=== PATIENT | male | born 1970 | race Caucasian/White ===

== ENCOUNTER 2016-12-11 15:07 | Observation (INO) | payer BC, OTHER ==
[~2016-12-11] VITALS: Ht 180.3 cm; Wt 145.0 kg
[~2016-12-11 15:07] MED LIST: ASPI81TA28 PO; ATOR-26 PO; CLOP1TAB15 PO; DPKSR/500 PO; EZET10TA63 PO; LISI-729 PO; METO25TA3 PO; NTRGSL/4 UT; TRAZ50TA35 PO
[2016-12-11] MEDS: NITROGLYCERIN 0.4 MG SL PER TAB CHARGE ONE (15:40)
[2016-12-11] MEDS: NITROGLYCERIN 0.4 MG SL PER TAB CHARGE SL STA (15:41)
[2016-12-11] MEDS: ASPIRIN 324 MG CHEW PO STA ×2 (15:48→16:04)
[2016-12-11 15:49] LABS: MEAN CELL VOLUME 90.5 fL (80-100); MEAN CORPUSCULAR HEMOGLOBIN 31.9 pg (25-34); MEAN CORPUSCULAR HGB CONC 35.2 g/dl (32-36); MEAN PLATELET VOLUME 10.7 fL (7.4-10.4); PLATELET COUNT 232 K/uL (130-400); RED BLOOD COUNT 4.86 M/uL (4.7-6.1)
[2016-12-11 16:06] LABS: BLOOD UREA NITROGEN 14 mg/dl (7-18); BUN/CREATININE RATIO 15.3 (10-20); CALCIUM 8.5 mg/dl (8.5-10.1); CARBON DIOXIDE 24 mmol/L (21-32); CHLORIDE 106 mmol/L (98-107); GLUCOSE 84 mg/dl (70-99); POTASSIUM 3.9 mmol/L (3.5-5.1); SODIUM 142 mmol/L (136-145)
--- NOTE | 2016-12-11 16:06 | DIAGNOSTIC IMAGING REPORT ---
CHEST 2 VIEWS ROUTINE CLINICAL HISTORY: Chest pain radiating to the back COMPARISON STUDY: 02/27/2015 FINDINGS: The cardiac and mediastinal contours are normal. There is no evidence of focal pulmonary consolidation. There is no evidence of failure. No pleural effusions are visualized.[ IMPRESSION: No active disease in the chest. Electronically signed by: Steven Griffin M.D. 12/11/2016 4:04 PM Dictated Date/Time: 12/11/2016 4:03 PM
[2016-12-11 16:11] LABS: CKMB/CK RATIO 1.1 (0-3.0)
[2016-12-11] MEDS ORDERED: NITROGLYCERIN 0.4 MG SL PER TAB CHARGE SL STA (16:55)
--- NOTE | 2016-12-11 16:55 | EMERGENCY ROOM VISIT NOTE ---
History First contact with patient: 15:11 Chief Complaint: CHEST PAIN Stated Complaint: CHEST PAINS, SHOULDER AND ARMS AND NECK PAIN Nursing Triage Summary: Patient states has been having chest pain for 3-4 days. Radiates to neck and right shoulder. Patient as taken nitro at home with intermittent relief. Patient states pain is currently 3/10, not radiating anywhere. Hx of bipolar disorder and NSTEMI. History of Present Illness The patient is a 46 year old male who presents to the Emergency Room with complaints of chest pain for 3 days. Patient has a history of DC with stenting to the left circumflex artery in 2011. EF on record is 55%. Patient notes chest pain came on suddenly 3 days ago. It is a pressure pain, 4/ 10 usually, has been as high as 7/10. He has not been active or ambulating much so cannot determine if it is worsened with exertion. He did try taking 1 SL nitro tab 1 day ago and did get pain relief for about an hour. He notes that the pain began radiating to his shoulders back and neck, which concerned him given that these features were similar to those he had with his DC in 2012. He denies any SOB, orthopnea, PND. He has palpitations often but attributes them to his background of anxiety. He does have baseline coughing but this is attributed to smoking and has been unchanged in many years. He has not had fevers, chills or nightsweats. He has no abdominal or genitourinary symptoms. Of note, he admits that he does not always take his medications as directed. He notes that twice monthly, he will go 3-4 days without taking his medications because it is hard to remember to take them. He notes discontinuing his Metoprolol because it made him feel sick. Review of Systems A 10 point review of systems was negative unless stated above. 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) Current/Historical Medications Scheduled Aspirin (Aspirin Ec), 81 MG PO DAILY Atorvastatin (Lipitor), 80 MG PO DAILY Clopidogrel (Plavix), 75 MG PO DAILY Divalproex Sodium (Depakote Etended-Release), 500 MG PO DAILY Ezetimibe (Zetia), 10 MG PO DAILY Scheduled PRN Nitroglycerin (Nitrostat), 0.4 MG UT UD PRN for Chest Pain Trazodone Hcl (Trazodone), 50 MG PO HS PRN for Sleep Allergies Coded Allergies: No Known Allergies (Unverified , 01/08/11) Physical Exam Vital Signs Date Time Temp Pulse Resp B/P Pulse Ox O2 Delivery O2 Flow Rate FiO2 12/11/16 17:08 86 21 127/62 94 Room Air 12/11/16 15:50 79 12/11/16 15:30 94 Room Air 12/11/16 15:30 94 Room Air 12/11/16 15:13 36.3 72 18 143/92 94 Room Air Pain Rating (0-10): 4 Physical Exam Constitutional: Vital signs as above were reviewed. Eyes: Pupils equal, round, and reactive to light. Extraocular muscles are intact. No proptosis. No photophobia. ENT: Mucous membranes are moist. Oropharynx is clear. No sinus tenderness. TMs are clear bilaterally. Cardiovascular: Heart with a regular rate and rhythm. Pulses are palpable and symmetric in all 4 extremities. No pedal edema appreciated. Respiratory: Lungs clear to auscultation bilaterally. No wheezes, rales, or rhonchi appreciated. No accessory muscle use. No retractions. No increased work of breathing. GI: Abdomen soft, nontender, nondistended. Normal active bowel sounds. No abdominal hernias appreciated. No rebound. No guarding. : No CVA tenderness appreciated. Musculoskeletal: No midline cervical or vertebral tenderness. No gross deformities. No bony tenderness. No calf swelling or tenderness. Integumentary: Warm, dry, no rashes appreciated. Neurological: Patient awake, alert, and oriented x 3. Cranial nerves two through 12 grossly intact. Motor 5 out of 5 strength bilateral upper and lower extremities. Lymph: No cervical lymphadenopathy appreciated. Medical Decision & Procedures ER Provider Diagnostic Interpretation: CHEST 2 VIEWS ROUTINE CLINICAL HISTORY: Chest pain radiating to the back COMPARISON STUDY: 02/27/2015 FINDINGS: The cardiac and mediastinal contours are normal. There is no evidence of focal pulmonary consolidation. There is no evidence of failure. No pleural effusions are visualized.[ IMPRESSION: No active disease in the chest. Electronically signed by: Steven Griffin M.D. 12/11/2016 4:04 PM Dictated Date/Time: 12/11/2016 4:03 PM Laboratory Results 12/11/16 15:30 12/11/16 15:30 Test 12/11/16 15:30 12/11/16 15:42 Red Blood Count 4.86 M/uL (4.7-6.1) Mean Corpuscular Volume 90.5 fL (80-100) Mean Corpuscular Hemoglobin 31.9 pg (25-34) Mean Corpuscular Hemoglobin Concent 35.2 g/dl (32-36) RDW Standard Deviation 44.5 fL (36.4-46.3) RDW Coefficient of Variation 13.5 % (11.5-14.5) Mean Platelet Volume 10.7 fL (7.4-10.4) Anion Gap 12.0 mmol/L (3-11) Est Creatinine Clear Calc Drug Dose 151.6 ml/min Estimated GFR () 119.1 Estimated GFR (Non- 102.8 BUN/Creatinine Ratio 15.3 (10-20) Calcium Level 8.5 mg/dl (8.5-10.1) Total Creatine Kinase 54 U/L (39-308) Creatine Kinase MB 0.6 ng/ml (0.5-3.6) Creatine Kinase MB Ratio 1.1 (0-3.0) Troponin I < 0.015 ng/ml (0-0.045) Valproic Acid (Depakene) Level 6 mcg/ml (50-100) Bedside Troponin I 0.000 ng/ml (0-0.045) Medications Administered Medications (Trade) Dose Ordered Sig/Nancy Route Start Time Stop Time Status Last Admin Dose Admin Nitroglycerin (Nitrostat Tab) 0.8 mg STK-MED ONCE .ROUTE 12/11/16 15:40 12/11/16 15:42 DC 12/11/16 15:40 0.8 MG Aspirin (Aspirin Chew) 324 mg NOW STAT PO 12/11/16 15:48 12/11/16 15:49 DC 12/11/16 15:48 324 MG ECG Indication: chest pain Change: NSR with sinus arrhythmia No acute ST or T wave changes No ectopy or pauses ED Course 15:20 - Patient evaluated Orders: CBC, BMP, POC troponin, troponin, ck, ckmb, CXR 0.4 SL nitro 243 mg ASA (patient already got 81 at home) 15:40 - Discussed case with ED attending physician 16:20 - EKG reviewed; No acute changes CXR reviewed: no acute findings Labs reviewed: Cardiac enzymes WNL ; CBC and BMP grossly normal Additional Nitro 0.4 mg ordered Serum Depakote ordered 16:30 - Discussed findings with Dr. Gordon Patient to be admitted for unstable angina with ongoing chest pain; patient high risk due to previous history and medication non-compliance 16:40 - Discussed case with Dr. Moreno of [facility]; agreed to admit patient for further evaluation 16:55 - Patient ordered additional 0.4 mg SL nitroglycerine Medical Decision History was obtained, complete physical examination was performed and EMR reviewed. Patient presents with chest pain on a background of known coronary disease. Patient has 2/3 features of typical angina, categorizing symptoms as 'atypical angina'. Differential diagnosis for chest pain includes: ACS, stable angina, pneumothorax , PE, pneumonia, aortic dissection, costochondritis, GERD. EKG was reviewed with negative cardiac enzyme x 1. Patient is however a high risk for re-infarction given 1) documented coronary disease 2) questionable compliance on current medication regimen. Patient treated with ASA 324 and Nitro SL 0.4 mg x 2, which did provide relief for chest pain. CXR was also reviewed to rule out any acute pulmonary or aortic process. No focal tenderness on exam, ruling out costochondritis. Patient requires observation for cardiac monitoring and enzyme trending. Discussed need for admission with [facility] who agree to admit and evaluate patient. Patient was admitted to inpatient service in stable condition. Departure Information Dispostion Being Evaluated By Hospitalist Condition GOOD Referrals No Doctor, Assigned (PCP) Patient Instructions [facility]
[2016-12-11] MEDS ORDERED: ACETAMINOPHEN 325 MG TAB PO PRN (17:30)
[2016-12-11] MEDS ORDERED: ONDANSETRON INJ 2 MG/ML 2 ML VIAL IV PRN (17:30)
--- NOTE | 2016-12-11 18:05 | History and Physical ---
History & Physical Date & Time of Service: Dec 11, 2016 at 17:38 Chief Complaint: Chest Pains, Shoulder And Arms And Neck Pain Primary Care Physician: No Doctor, Assigned History of Present Illness Source: patient, family Patient is a 46 yr old male with PMH of CAD S/P stent, Morbid obesity, Tobacco use disorder, Bipolar disorder presents with chest pain since 3 days duration. Patient had stenting to the left circumflex artery in 2011 and last EF is 55%. He states chest pain is sudden in onset at rest, retrosternal, pressure like, 4- 7/10 intensity, radiates to shoulders, back and neck. Chest pain improved with SL Nitro at home also while in ED. States chest pain is worse with eating and better while lying. He is unsure if chest pain worsens with exertion. Reports associated dizziness yesterday. Reports he recently got an URI which resolved with any medications. Denies any history of SOB, orthopnea, PND, pedal edema, diaphoresis, fever, chills, change in bowel/bladder habits. States he discontinued metoprolol secondary to medication intolerance. 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) Immunizations History of Influenza Vaccine: N/A History of Tetanus Vaccine?: Unknown History of Pneumococcal: No History of Hepatitis B Vaccine: No Allergies Coded Allergies: No Known Allergies (Unverified , 01/08/11) Home Medications Scheduled Aspirin (Aspirin Ec), 81 MG PO DAILY Atorvastatin (Lipitor), 80 MG PO DAILY Clopidogrel (Plavix), 75 MG PO DAILY Divalproex Sodium (Depakote Etended-Release), 500 MG PO DAILY Ezetimibe (Zetia), 10 MG PO DAILY Scheduled PRN Nitroglycerin (Nitrostat), 0.4 MG UT UD PRN for Chest Pain Trazodone Hcl (Trazodone), 50 MG PO HS PRN for Sleep Review of Systems See HPI for pertinent positives & negatives. A total of 10 systems reviewed and were otherwise negative. Physical Exam Vital Signs Date Time Temp Pulse Resp B/P Pulse Ox O2 Delivery O2 Flow Rate FiO2 12/11/16 17:08 86 21 127/62 94 Room Air 12/11/16 15:50 79 12/11/16 15:30 94 Room Air 12/11/16 15:30 94 Room Air 12/11/16 15:13 36.3 72 18 143/92 94 Room Air General Appearance: WD/WN, no apparent distress, + obese Head: normocephalic, atraumatic Eyes: normal inspection, PERRL, EOMI, sclerae normal ENT: normal ENT inspection, hearing grossly normal Neck: supple, thyroid normal, no JVD, trachea midline Respiratory/Chest: chest non-tender, lungs clear, normal breath sounds, no respiratory distress, no accessory muscle use Cardiovascular: regular rate, rhythm, no gallop, no JVD, no murmur, + pertinent finding (Trace pedal edema) Abdomen/GI: normal bowel sounds, non tender, soft, no organomegaly Back: normal inspection Extremities/Musculoskelatal: normal inspection, no calf tenderness, normal range of motion, + pertinent finding (Trace pedal edema) 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 tested, no motor/sensory deficits, alert, normal mood/affect, oriented x 3 Skin: normal color, warm/dry Lymphatic: no adenopathy Diagnostics Laboratory Results Results Past 24 Hours Test 12/11/16 15:30 12/11/16 15:42 12/11/16 17:31 12/11/16 17:36 Range/Units White Blood Count 7.50 4.8-10.8 K/uL Red Blood Count 4.86 4.7-6.1 M/uL Hemoglobin 15.5 14.0-18.0 g/dL Hematocrit 44.0 42-52 % Mean Corpuscular Volume 90.5 80-100 fL Mean Corpuscular Hemoglobin 31.9 25-34 pg Mean Corpuscular Hemoglobin Concent 35.2 32-36 g/dl RDW Standard Deviation 44.5 36.4-46.3 fL RDW Coefficient of Variation 13.5 11.5-14.5 % Platelet Count 232 130-400 K/uL Mean Platelet Volume 10.7 7.4-10.4 fL Sodium Level 142 136-145 mmol/L Potassium Level 3.9 3.5-5.1 mmol/L Chloride Level 106 98-107 mmol/L Carbon Dioxide Level 24 21-32 mmol/L Anion Gap 12.0 3-11 mmol/L Blood Urea Nitrogen 14 7-18 mg/dl Creatinine 0.90 0.60-1.40 mg/dl Est Creatinine Clear Calc Drug Dose 151.6 ml/min Estimated GFR () 119.1 Estimated GFR (Non- 102.8 BUN/Creatinine Ratio 15.3 10-20 Random Glucose 84 70-99 mg/dl Calcium Level 8.5 8.5-10.1 mg/dl Total Creatine Kinase 54 39-308 U/L Creatine Kinase MB 0.6 0.5-3.6 ng/ml Creatine Kinase MB Ratio 1.1 0-3.0 Troponin I < 0.015 0-0.045 ng/ml Valproic Acid (Depakene) Level 6 50-100 mcg/ml Bedside Troponin I 0.000 0-0.045 ng/ml Diagnostic Radiology CXR: IMPRESSION: No active disease in the chest. Electronically signed by: Steven Griffin M.D. 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 Could have underlying PALOMO/obesity hypoventilation syndrome Needs eval as outpatient DVT Px: Heparin SQ Code Status: Full code VTE Prophylaxis VTE Risk Assessment Done? Y/N: Yes Risk Level: Low
[2016-12-11 18:15] VITALS: BP 124/78; PULSE 60; TEMP 36.4; O2SAT 95; Ht 180.3 cm; Wt 145.0 kg
[2016-12-11] MEDS ORDERED: IV FLUIDS COMPLETED PRN (18:30)
[2016-12-11 19:39] VITALS: BP 116/76; PULSE 74; O2SAT 93
[2016-12-11] MEDS: NITROGLYCERIN 0.4 MG SL PER TAB CHARGE UT PRN ×2 (19:45→23:18)
[2016-12-11] MEDS: HEPARIN SOD 5000 UNIT/0.5 ML CARP SQ SCH (21:22)
[2016-12-11 23:59] VITALS: BP 120/73; PULSE 72; TEMP 36.8; O2SAT 94
[2016-12-12 03:58] LABS: BASO % 0.6 %; BASO ABS # 0.04 K/uL (0-0.2); COMPLETE YES; EOS % 2.3 %; HEMATOCRIT 41.4 % (42-52); IG% 0.1 %; LYMPH % 45.8 %; LYMPH ABS # 3.23 K/uL (1.2-3.4); MEAN CORPUSCULAR HEMOGLOBIN 31.4 pg (25-34); MEAN CORPUSCULAR HGB CONC 34.5 g/dl (32-36); MEAN PLATELET VOLUME 10.3 fL (7.4-10.4); MONO % 8.1 %; NEUT % 43.1 %; PLATELET COUNT 199 K/uL (130-400); RED BLOOD COUNT 4.55 M/uL (4.7-6.1); WHITE BLOOD COUNT 7.05 K/uL (4.8-10.8)
[2016-12-12 04:00] VITALS: BP 97/62; PULSE 61; TEMP 36.5; O2SAT 94
[2016-12-12 04:17] LABS: BLOOD UREA NITROGEN 15 mg/dl (7-18); BUN/CREATININE RATIO 19.9 (10-20); CALCIUM 8.3 mg/dl (8.5-10.1); CARBON DIOXIDE 28 mmol/L (21-32); CHLORIDE 107 mmol/L (98-107); CREATININE 0.75 mg/dl (0.60-1.40); GLUCOSE 88 mg/dl (70-99); SODIUM 144 mmol/L (136-145)
[2016-12-12 04:35] LABS: CHOLESTEROL 122 mg/dl (0-200); CHOLESTEROL/HDL RATIO 3.4; HDL CHOLESTEROL 36 mg/dl; LDL CHOLESTEROL CALCULATED 59 mg/dl; TRIGLYCERIDES 135 mg/dl (0-150); VERY LOW DENSITY LIPOPROT CALC 27 mg/dl
[2016-12-12] MEDS: HEPARIN SOD 5000 UNIT/0.5 ML CARP SQ SCH (05:31)
[2016-12-12 07:06] LABS: ESTIMATED AVERAGE GLUCOSE 108 mg/dl; HA1C FLAG Normal (Normal)
[2016-12-12] MEDS ORDERED: ASPIRIN 81 MG ECTAB PO SCH (09:00)
[2016-12-12] MEDS ORDERED: CLOPIDOGREL BISULFATE 75 MG TAB PO SCH (09:00)
[2016-12-12] MEDS ORDERED: EZETIMIBE 10MG TAB PO SCH (09:00)
[2016-12-12] MEDS ORDERED: DIVALPROEX 500 MG EXTENDED RELEASE TAB PO SCH (09:00)
[2016-12-12] MEDS ORDERED: ATORVASTATIN 40 MG TAB PO SCH (09:00)
--- NOTE | 2016-12-12 20:06 | Progress Note ---
Progress Note Nurse called this morning that Pt signed AMA because he did not have a time on when he is getting his stress test done this morning. He left AMA without seeing a physician today.
--- NOTE | 2016-12-16 14:12 | Discharge Summary ---
Discharge Summary Admission Date: Dec 11, 2016 at 17:27 Principal Diagnosis: Chest pain Admission Information HPI (per Admitting provider): Patient is a 46 yr old male with PMH of CAD S/P stent, Morbid obesity, Tobacco use disorder, Bipolar disorder presents with chest pain since 3 days duration. Patient had stenting to the left circumflex artery in 2011 and last EF is 55%. He states chest pain is sudden in onset at rest, retrosternal, pressure like, 4- 7/10 intensity, radiates to shoulders, back and neck. Chest pain improved with SL Nitro at home also while in ED. States chest pain is worse with eating and better while lying. He is unsure if chest pain worsens with exertion. Reports associated dizziness yesterday. Reports he recently got an URI which resolved with any medications. Denies any history of SOB, orthopnea, PND, pedal edema, diaphoresis, fever, chills, change in bowel/bladder habits. States he discontinued metoprolol secondary to medication intolerance. Physical Exam (per Admitting): General Appearance: WD/WN, no apparent distress, + obese Head: normocephalic, atraumatic Eyes: normal inspection, PERRL, EOMI, sclerae normal ENT: normal ENT inspection, hearing grossly normal Neck: supple, thyroid normal, no JVD, trachea midline Respiratory/Chest: chest non-tender, lungs clear, normal breath sounds, no respiratory distress, no accessory muscle use Cardiovascular: regular rate, rhythm, no gallop, no JVD, no murmur, + pertinent finding (Trace pedal edema) Abdomen/GI: normal bowel sounds, non tender, soft, no organomegaly Back: normal inspection Extremities/Musculoskelatal: normal inspection, no calf tenderness, normal range of motion, + pertinent finding (Trace pedal edema) Neurologic/Psych: propagator II-XII nml as tested, no motor/sensory deficits, alert , normal mood/affect, oriented x 3 Skin: normal color, warm/dry Lymphatic: no adenopathy Hospital Course Nurse called this morning that Pt signed AMA because he did not have a time on when he is getting his stress test done this morning. He left AMA without seeing a physician. Total time spent on discharge = This includes examination of the patient, discharge planning, medication reconciliation, and communication with other providers. Discharge Instructions Patient signed AMA.
--- NOTE | 2016-12-28 00:30 | EMERGENCY ROOM VISIT NOTE ---
ED Visit Note First contact with patient: 15:17 Resident Physician Supervision Note: Dr. Jimenez was resident physician during care of patient. I separately evaluated patient and did history and exam. I discussed the case with the resident and generally agree with the findings and plan. 46 yr old male with known CAD and questionable med noncompliance arrives for chest pain evaluation. Previous stenting and notes that chest pain got better with SLNTG. EKG without ischemia and initial trop negative. CXR looks OK. No evidence that this is dissection nor PE at this time. Given his history and description will feel that bringing in for cardiac rule out reasonable. Stable throughout ED stay. Diagnosis: Chest Pain - Bilateral with radiation to arms. Documented By: Leroy Gordon MD
== END 2016-12-12 09:27 | disposition left against medical advice (07) ==
LOC: ENRESERVDT → ENRESERVTM → C.EDB 15:08 → C.2T 17:27
PROVIDERS: ADMIT Internal Medicine; ATTEND Internal Medicine
DX: R07.89 Other chest pain (principal); I25.2 Old myocardial infarction; I25.10 Atherosclerotic heart disease of native coronary artery without angina pectoris; F31.9 Bipolar disorder, unspecified; E66.01 Morbid (severe) obesity due to excess calories; F17.200 Nicotine dependence, unspecified, uncomplicated; Z51.81 Encounter for therapeutic drug level monitoring; Z79.899 Other long term (current) drug therapy; Z79.82 Long term (current) use of aspirin; Z79.02 Long term (current) use of antithrombotics/antiplatelets; Z91.14 Patient's other noncompliance with medication regimen; Z95.5 Presence of coronary angioplasty implant and graft; Z68.41 Body mass index [BMI] 40.0-44.9, adult; Z82.5 Family history of asthma and other chronic lower respiratory diseases; Z83.3 Family history of diabetes mellitus

== ENCOUNTER 2016-12-14 15:46 | Observation (INO) | payer BC ==
[~2016-12-14] VITALS: Ht 180.3 cm; Wt 144.6 kg
[~2016-12-14 15:46] MED LIST changes: -LISI-729 PO; -METO25TA3 PO
[2016-12-14] MEDS ORDERED: ASPIRIN 324 MG CHEW PO STA (16:05)
--- NOTE | 2016-12-14 16:08 | EMERGENCY ROOM VISIT NOTE ---
History Report prepared by Rafiq: Stewart Hitchcock Under the Supervision of: Dr. Inna Gonzalez M.D. First contact with patient: 15:55 Chief Complaint: CHEST PAIN Stated Complaint: CHEST PAINS History of Present Illness The patient is a 46 year old male who presents to the Emergency Room with complaints of waxing and waning chest pain that started a few days ago. He says he was admitted for chest pain before but has never seen a animal therapist. His chest pain worsens after eating. It ranges from a "nuisance level" to a steady 5 out of 10 in severity after eating. The patient notes that he gets intermittent shooting pains that are a 7 out of 10 in severity. He has no family history of heart problems. The patient last had a stent placed 5 years ago and has a history of coronary artery disease. He denies any abdominal pain. Source of History: patient Onset: A few days ago Position: chest Symptom Intensity: 7 out of 10 in severity at worst Timing: other (waxing and waning) Associated Symptoms: No abdominal pain Note: Associated symptoms: No other associated symptoms noted. Review of Systems See HPI for pertinent positives & negatives. A total of 10 systems reviewed and were otherwise negative. Past Medical & Surgical Medical Problems: (1) Bipolar disorder (2) CAD (coronary artery disease) (3) Hyperlipidemia (4) Myocardial infarction (5) Obesity (6) Tobacco use disorder Surgical Problems: (1) S/P coronary artery stent placement (2) S/P surgical manipulation of ankle joint Family History No significant family history Social History Smoking Status: Current Every Day Smoker Alcohol Use: occasionally Drug Use: marijuana Marital Status: , in relationship Housing Status: lives with family Occupation Status: employed Current/Historical Medications Scheduled Aspirin (Aspirin Ec), 81 MG PO DAILY Atorvastatin (Lipitor), 80 MG PO DAILY Clopidogrel (Plavix), 75 MG PO DAILY Divalproex Sodium (Depakote Etended-Release), 500 MG PO DAILY Ezetimibe (Zetia), 10 MG PO DAILY Scheduled PRN Nitroglycerin (Nitrostat), 0.4 MG UT UD PRN for Chest Pain Trazodone Hcl (Trazodone), 50 MG PO HS PRN for Sleep Allergies Coded Allergies: No Known Allergies (Unverified , 12/14/16) Physical Exam Vital Signs Date Time Temp Pulse Resp B/P Pulse Ox O2 Delivery O2 Flow Rate FiO2 12/14/16 16:23 97 Room Air 12/14/16 16:23 83 12/14/16 15:49 36.6 115 18 142/80 94 Room Air Physical Exam CONSTITUTIONAL: In mild distress. HEENT: No icterus, moist mucous membranes NECK: No meningismus, trachea is midline. CARDIOVASCULAR: Regular rate, normal perfusion RESPIRATORY: Unlabored breathing. Clear to auscultation. GASTROINTESTINAL: Non-tender GENITOURINARY: No flank tenderness MUSCULOSKELETAL: Full range of motion NEUROLOGIC: No acute gross focal deficits. PSYCHIATRIC: Normal affect SKIN: Normal for ethnicity. Medical Decision & Procedures ER Provider Diagnostic Interpretation: X-ray results as stated below per my interpretation and radiologist interpretation. Other radiology results as stated below per my review and radiologist interpretation. CHEST ONE VIEW PORTABLE CLINICAL HISTORY: Chest pain, worse with eating. COMPARISON STUDY: Chest radiograph December 11, 2016. FINDINGS: Lung volumes are normal. There is no pneumothorax or pleural effusion. Cardiac size is normal. Mediastinal contours are normal. There is no evidence of pulmonary edema. IMPRESSION: No acute cardiopulmonary findings. Electronically signed by: Marcin Castaneda M.D. 12/14/2016 4:21 PM Dictated Date/Time: 12/14/2016 4:19 PM ULTRASOUND RIGHT UPPER QUADRANT ABDOMEN CLINICAL HISTORY: Atypical chest pain. COMPARISON STUDY: No priors. TECHNIQUE: Real-time, grayscale, and color flow sonography of the right upper quadrant of the abdomen was performed. Images are reviewed in the transverse and longitudinal planes. FINDINGS: Liver: The liver is enlarged and demonstrates heterogeneously increased echotexture consistent with hepatic steatosis. There is no intrahepatic biliary ductal dilatation. The main portal vein is patent. Gallbladder: Shadowing calcified gallstones are identified. There is no gallbladder wall thickening or pericholecystic fluid. A sonographic Barraza's sign is reportedly absent. The common bile duct measures up to 0.3 cm in diameter. Pancreas: Visualized portions of the pancreatic head and body are normal in appearance. Right kidney: Survey images of the right kidney demonstrate normal size and echotexture. There is no hydronephrosis. Ascites: None. IMPRESSION: 1. Cholelithiasis without sonographic evidence of acute cholecystitis. 2. Hepatomegaly and hepatic steatosis. Electronically signed by: Carloz Flynn M.D. 12/14/2016 6:18 PM Dictated Date/Time: 12/14/2016 6:17 PM Laboratory Results 12/14/16 16:15 Red Blood Count 4.76, Mean Corpuscular Volume 90.1, Mean Corpuscular Hemoglobin 31.5, Mean Corpuscular Hemoglobin Concent 35.0, Mean Platelet Volume 10.4, Neutrophils (%) (Auto) 52.6, Lymphocytes (%) (Auto) 38.9, Monocytes (%) (Auto) 6.4, Eosinophils (%) (Auto) 1.4, Basophils (%) (Auto) 0.6, Neutrophils # (Auto) 3.63, Lymphocytes # (Auto) 2.69, Monocytes # (Auto) 0.44, Eosinophils # (Auto) 0.10, Basophils # (Auto) 0.04 12/14/16 16:15 Test 12/14/16 16:15 White Blood Count 6.91 K/uL (4.8-10.8) Red Blood Count 4.76 M/uL (4.7-6.1) Hemoglobin 15.0 g/dL (14.0-18.0) Hematocrit 42.9 % (42-52) Mean Corpuscular Volume 90.1 fL (80-100) Mean Corpuscular Hemoglobin 31.5 pg (25-34) Mean Corpuscular Hemoglobin Concent 35.0 g/dl (32-36) Platelet Count 235 K/uL (130-400) Mean Platelet Volume 10.4 fL (7.4-10.4) Neutrophils (%) (Auto) 52.6 % Lymphocytes (%) (Auto) 38.9 % Monocytes (%) (Auto) 6.4 % Eosinophils (%) (Auto) 1.4 % Basophils (%) (Auto) 0.6 % Neutrophils # (Auto) 3.63 K/uL (1.4-6.5) Lymphocytes # (Auto) 2.69 K/uL (1.2-3.4) Monocytes # (Auto) 0.44 K/uL (0.11-0.59) Eosinophils # (Auto) 0.10 K/uL (0-0.5) Basophils # (Auto) 0.04 K/uL (0-0.2) RDW Standard Deviation 43.7 fL (36.4-46.3) RDW Coefficient of Variation 13.3 % (11.5-14.5) Immature Granulocyte % (Auto) 0.1 % Immature Granulocyte # (Auto) 0.01 K/uL (0.00-0.02) Prothrombin Time 11.2 SECONDS (9.0-12.0) Prothromb Time International Ratio 1.0 (0.9-1.1) Activated Partial Thromboplast Time 27.1 SECONDS (21.0-31.0) Partial Thromboplastin Ratio 1.0 Anion Gap 9.0 mmol/L (3-11) Est Creatinine Clear Calc Drug Dose 167.7 ml/min Estimated GFR () 124.4 Estimated GFR (Non- 107.3 BUN/Creatinine Ratio 12.1 (10-20) Calcium Level 8.3 mg/dl (8.5-10.1) Total Bilirubin 0.6 mg/dl (0.2-1) Direct Bilirubin 0.2 mg/dl (0-0.2) Aspartate Amino Transf (AST/SGOT) 16 U/L (15-37) Alanine Aminotransferase (ALT/SGPT) 31 U/L (12-78) Alkaline Phosphatase 75 U/L (45-117) Troponin I < 0.015 ng/ml (0-0.045) Total Protein 6.6 gm/dl (6.4-8.2) Albumin 3.7 gm/dl (3.4-5.0) Lipase 317 U/L (73-393) Labs reviewed by ED physician. Medications Administered Medications (Trade) Dose Ordered Sig/Nancy Route Start Time Stop Time Status Last Admin Dose Admin Aspirin (Aspirin Chew) 324 mg NOW STAT PO 12/14/16 16:05 12/14/16 16:07 DC 12/14/16 16:05 324 MG ECG Indication: chest pain Rate (beats per minute): 100 Rhythm: normal sinus Findings: no ectopy, other (normal axis, nonspecific-ST findings) ED Course 1554: Past medical records reviewed. The patient was evaluated in room A2. A complete history and physical examination was performed. The patient verbally expressed agreement and understanding of the treatment plan. The patient will be evaluated for further treatment. 1605: Ordered Aspirin Chew 324 mg PO. 1633: I discussed the patient with Kaela Schuster - she will evaluate the patient for further treatment. Medical Decision Differential diagnoses include: coronary artery disease, gallbladder disease. 46-year-old with history of coronary artery disease status post stent 5 years ago returns to the emergency room for evaluation of waxing and waning chest pain worse with eating over the last few days. He was admitted to the hospital several days ago but signed out AGAINST MEDICAL ADVICE before his cardiology evaluation. He notes that he gets particularly anxious in the hospital and a poor decision and would now like to complete his evaluation. EKG NSR 100 with NSSTC. Aspirin ordered. Consults Time Called: 1630 Consulting Physician: Kaela Schuster Returned Call: 1633 I discussed the patient with Kaela Schuster - she will evaluate the patient for further treatment. Impression Primary Impression: Precordial chest pain Scribe Attestation The scribe's documentation has been prepared under my direction and personally reviewed by me in its entirety. I confirm that the note above accurately reflects all work, treatment, procedures, and medical decision making performed by me. Departure Information Dispostion Being Evaluated By Hospitalist Referrals No Doctor, Assigned (PCP) Patient Instructions [facility]
--- NOTE | 2016-12-14 16:23 | DIAGNOSTIC IMAGING REPORT ---
CHEST ONE VIEW PORTABLE CLINICAL HISTORY: Chest pain, worse with eating. COMPARISON STUDY: Chest radiograph December 11, 2016. FINDINGS: Lung volumes are normal. There is no pneumothorax or pleural effusion. Cardiac size is normal. Mediastinal contours are normal. There is no evidence of pulmonary edema. IMPRESSION: No acute cardiopulmonary findings. Electronically signed by: Marcin Castaneda M.D. 12/14/2016 4:21 PM Dictated Date/Time: 12/14/2016 4:19 PM
[2016-12-14 16:27] LABS: BASO % 0.6 %; BASO ABS # 0.04 K/uL (0-0.2); COMPLETE YES; EOS % 1.4 %; HEMATOCRIT 42.9 % (42-52); IG% 0.1 %; LYMPH % 38.9 %; LYMPH ABS # 2.69 K/uL (1.2-3.4); MEAN CELL VOLUME 90.1 fL (80-100); MEAN CORPUSCULAR HEMOGLOBIN 31.5 pg (25-34); MEAN PLATELET VOLUME 10.4 fL (7.4-10.4); MONO % 6.4 %; NEUT % 52.6 %; PLATELET COUNT 235 K/uL (130-400); RED BLOOD COUNT 4.76 M/uL (4.7-6.1); WHITE BLOOD COUNT 6.91 K/uL (4.8-10.8)
[2016-12-14 16:39] LABS: PROTHROMBIN TIME (PATIENT) 11.2 SECONDS (9.0-12.0)
[2016-12-14 16:54] LABS: ALKALINE PHOSPHATASE 75 U/L (45-117); ALT/SGPT 31 U/L (12-78); AST/SGOT 16 U/L (15-37); BLOOD UREA NITROGEN 10 mg/dl (7-18); BUN/CREATININE RATIO 12.1 (10-20); CALCIUM 8.3 mg/dl (8.5-10.1); CARBON DIOXIDE 26 mmol/L (21-32); CHLORIDE 108 mmol/L (98-107); CREATININE 0.81 mg/dl (0.60-1.40); GLUCOSE 125 mg/dl (70-99); SODIUM 143 mmol/L (136-145)
[2016-12-14] MEDS ORDERED: TRAZODONE HCL 50 MG TAB PO PRN (17:30)
[2016-12-14] MEDS ORDERED: ONDANSETRON INJ 2 MG/ML 2 ML VIAL IV PRN (18:00)
[2016-12-14] MEDS ORDERED: ACETAMINOPHEN 325 MG TAB PO PRN (18:00)
--- NOTE | 2016-12-14 18:02 | History and Physical ---
History & Physical Date & Time of Service: Dec 14, 2016 at 17:24 Chief Complaint: Chest Pains Primary Care Physician: No Doctor, Assigned History of Present Illness Source: patient, clinic records, hospital records This is a 46 year old male with PMH of CAD s/p POOJA to L circumflex in 04/2012, tobacco abuse, obesity, bipolar disorder, who presents to the ED with waxing and waning chest pain x 5 days. Patient's telephone diaphragm assembler is Dr. Haque. Patient was admitted to [facility] 3 days ago on Dec 11, 2016 for chest pain R/O with EKG showing no sign of ischemia and troponin negative x 3. He was planned to have cardiology consultation and stress test the following morning but he left AMA before it could be done. Pt states he was thinking irrationally due to his bipolar disorder being exacerbated by the stress of being in the hospital. He returns today with continued chest pain. He states the chest pain is in sternal area described as pressure with radiation of shooting pain to bilateral shoulders. He states pain waxes and wanes for past 5 days. It is worse after eating. Today it worsened after having soup and crackers. It improves temporarily with nitro which he took around 1 pm. He denies exertional component although has not been exerting himself. Currently he is chest pain free. He states his prior [place] presented as pain in the shoulders. He reports chronic SWEET with 1 flight of stairs. Denies increased dyspnea from baseline. Denies change in chronic bilateral ankle edema. Denies diaphoresis, dizziness, syncope, palpitations, URI, cough, SOB at rest, orthopnea, nausea, vomiting, abdominal pain, reflux, bowel or bladder changes, calf pain. Pt reports intolerance to beta blockers due to bradycardia and weakness. Last stress echo positive for reversible ischemia, EF noted to be 63%. Subsequent cardiac catheterization on 03/17/16 showed patent LAD stent and nonobstructive disease. Denies hx of gallbladder disease or abdominal surgery. Past Medical/Surgical History Medical Problems: (1) Bipolar disorder Status: Chronic (2) CAD (coronary artery disease) Status: Chronic (3) Hyperlipidemia Status: Chronic (4) Myocardial infarction Status: Chronic (5) Obesity Status: Chronic (6) Tobacco use disorder Status: Chronic Surgical Problems: (1) S/P coronary artery stent placement Permanent Comment: POOJA to left circumflex 2011 Status: Chronic (2) S/P surgical manipulation of ankle joint Permanent Comment: right Status: Chronic Family History FH: emphysema FATHER Social History Smoking Status: Current Every Day Smoker (trying to cut down and quit. using 2 cigarettes per day) Alcohol Use: socially Drug Use: marijuana Marital Status: , in relationship Housing status: lives with significant other Occupational Status: employed Immunizations History of Influenza Vaccine: N/A History of Tetanus Vaccine?: Unknown History of Pneumococcal: No History of Hepatitis B Vaccine: No Allergies Coded Allergies: No Known Allergies (Unverified , 12/14/16) Home Medications Scheduled Aspirin (Aspirin Ec), 81 MG PO DAILY Atorvastatin (Lipitor), 80 MG PO DAILY Clopidogrel (Plavix), 75 MG PO DAILY Divalproex Sodium (Depakote Etended-Release), 500 MG PO DAILY Ezetimibe (Zetia), 10 MG PO DAILY Scheduled PRN Nitroglycerin (Nitrostat), 0.4 MG UT UD PRN for Chest Pain Trazodone Hcl (Trazodone), 50 MG PO HS PRN for Sleep Review of Systems Ten point review of systems performed with pertinent positives and negatives noted in HPI. Physical Exam Vital Signs Date Time Temp Pulse Resp B/P Pulse Ox O2 Delivery O2 Flow Rate FiO2 12/14/16 16:23 97 Room Air 12/14/16 16:23 83 12/14/16 15:49 36.6 115 18 142/80 94 Room Air General Appearance: no apparent distress, + obese, + pertinent finding (alert cooperative 46 year old male ) Head: normocephalic, atraumatic Eyes: normal inspection, PERRL, EOMI ENT: hearing grossly normal, pharynx normal Neck: supple, no JVD, trachea midline Respiratory/Chest: chest non-tender, lungs clear, normal breath sounds, no respiratory distress Cardiovascular: regular rate, rhythm, no murmur Abdomen/GI: normal bowel sounds, non tender, soft Extremities/Musculoskelatal: no calf tenderness, normal capillary refill, + pertinent finding (trace BLLE edema) Neurologic/Psych: alert, normal mood/affect, oriented x 3, + pertinent finding (grossly nonfocal) Skin: normal color, warm/dry, no rash (no rash on the chest) Diagnostics Laboratory Results Results Past 24 Hours Test 12/14/16 16:15 Range/Units White Blood Count 6.91 4.8-10.8 K/uL Red Blood Count 4.76 4.7-6.1 M/uL Hemoglobin 15.0 14.0-18.0 g/dL Hematocrit 42.9 42-52 % Mean Corpuscular Volume 90.1 80-100 fL Mean Corpuscular Hemoglobin 31.5 25-34 pg Mean Corpuscular Hemoglobin Concent 35.0 32-36 g/dl Platelet Count 235 130-400 K/uL Mean Platelet Volume 10.4 7.4-10.4 fL Neutrophils (%) (Auto) 52.6 % Lymphocytes (%) (Auto) 38.9 % Monocytes (%) (Auto) 6.4 % Eosinophils (%) (Auto) 1.4 % Basophils (%) (Auto) 0.6 % Neutrophils # (Auto) 3.63 1.4-6.5 K/uL Lymphocytes # (Auto) 2.69 1.2-3.4 K/uL Monocytes # (Auto) 0.44 0.11-0.59 K/uL Eosinophils # (Auto) 0.10 0-0.5 K/uL Basophils # (Auto) 0.04 0-0.2 K/uL RDW Standard Deviation 43.7 36.4-46.3 fL RDW Coefficient of Variation 13.3 11.5-14.5 % Immature Granulocyte % (Auto) 0.1 % Immature Granulocyte # (Auto) 0.01 0.00-0.02 K/uL Prothrombin Time 11.2 9.0-12.0 SECONDS Prothromb Time International Ratio 1.0 0.9-1.1 Activated Partial Thromboplast Time 27.1 21.0-31.0 SECONDS Partial Thromboplastin Ratio 1.0 Sodium Level 143 136-145 mmol/L Potassium Level 4.0 3.5-5.1 mmol/L Chloride Level 108 98-107 mmol/L Carbon Dioxide Level 26 21-32 mmol/L Anion Gap 9.0 3-11 mmol/L Blood Urea Nitrogen 10 7-18 mg/dl Creatinine 0.81 0.60-1.40 mg/dl Est Creatinine Clear Calc Drug Dose 167.7 ml/min Estimated GFR () 124.4 Estimated GFR (Non- 107.3 BUN/Creatinine Ratio 12.1 10-20 Random Glucose 125 70-99 mg/dl Calcium Level 8.3 8.5-10.1 mg/dl Total Bilirubin 0.6 0.2-1 mg/dl Direct Bilirubin 0.2 0-0.2 mg/dl Aspartate Amino Transf (AST/SGOT) 16 15-37 U/L Alanine Aminotransferase (ALT/SGPT) 31 12-78 U/L Alkaline Phosphatase 75 45-117 U/L Troponin I < 0.015 0-0.045 ng/ml Total Protein 6.6 6.4-8.2 gm/dl Albumin 3.7 3.4-5.0 gm/dl Lipase 317 73-393 U/L Diagnostic Radiology CHEST ONE VIEW PORTABLE CLINICAL HISTORY: Chest pain, worse with eating. COMPARISON STUDY: Chest radiograph December 11, 2016. FINDINGS: Lung volumes are normal. There is no pneumothorax or pleural effusion. Cardiac size is normal. Mediastinal contours are normal. There is no evidence of pulmonary edema. IMPRESSION: No acute cardiopulmonary findings. EKG sinus tachycardia, rate 101, no ST or T wave abnormality Impression Assessment and Plan CHEST PAIN R/o ACS; history of CAD s/p POOJA to L circumflex in 2011; repeat cath 03/17/2015 showed nonobstructive disease and patent LAD stent EF 63% on echo 02/2015 Initial troponin negative EKG- no ST or T wave abnormalities CXR- unremarkable Gallbladder US ordered by ER pending Trend serial cardiac enzymes Repeat EKG in am NPO after midnight Intolerant to beta dave Continue aspirin, Plavix, statin Consult cardiology- discussed with Dr. Pennington HYPERLIPIDEMIA LDL was 59 on 12/12/16 Continue atorvastatin BIPOLAR DISORDER Continue Depakote Follows with psychiatry TOBACCO ABUSE Discussed cessation DVT PROPHYLAXIS Lovenox SQ DISPOSITION Observation to telemetry Patient seen in collaboration with Dr. Clark. Please see her addendum. ATTENDING ADDENDUM Record reviewed. Patient interviewed and examined. Care coordinated with Brooklyn Phelps PA-C. Please refer to her documentation for patient's history. VTE Prophylaxis VTE Risk Assessment Done? Y/N: Yes Risk Level: Moderate
--- NOTE | 2016-12-14 18:19 | DIAGNOSTIC IMAGING REPORT ---
ULTRASOUND RIGHT UPPER QUADRANT ABDOMEN CLINICAL HISTORY: Atypical chest pain. COMPARISON STUDY: No priors. TECHNIQUE: Real-time, grayscale, and color flow sonography of the right upper quadrant of the abdomen was performed. Images are reviewed in the transverse and longitudinal planes. FINDINGS: Liver: The liver is enlarged and demonstrates heterogeneously increased echotexture consistent with hepatic steatosis. There is no intrahepatic biliary ductal dilatation. The main portal vein is patent. Gallbladder: Shadowing calcified gallstones are identified. There is no gallbladder wall thickening or pericholecystic fluid. A sonographic Barraza's sign is reportedly absent. The common bile duct measures up to 0.3 cm in diameter. Pancreas: Visualized portions of the pancreatic head and body are normal in appearance. Right kidney: Survey images of the right kidney demonstrate normal size and echotexture. There is no hydronephrosis. Ascites: None. IMPRESSION: 1. Cholelithiasis without sonographic evidence of acute cholecystitis. 2. Hepatomegaly and hepatic steatosis. Electronically signed by: Carloz Flynn M.D. 12/14/2016 6:18 PM Dictated Date/Time: 12/14/2016 6:17 PM
[2016-12-14] MEDS ORDERED: ASPIRIN 81 MG CHEW ONE (18:48)
[2016-12-14 19:10] VITALS: BP 122/81; PULSE 65; TEMP 36.4; O2SAT 96
[2016-12-14] MEDS ORDERED: LORAZEPAM 1 MG TAB PO STA (19:55)
[2016-12-14] MEDS ORDERED: GI COCKTAIL PO ONE (20:00)
[2016-12-14] MEDS: METOPROLOL TARTRATE 25 MG TAB PO SCH (20:00)
[2016-12-14] MEDS ORDERED: ALUMINUM/MAGNESIUM SUSP 18 ML, LIDOCAINE HCL 2% VISCOUS SOLN 6 ML, BARCODE IDENTIFIER 1 EA PO SCH ×2 (20:15)
[2016-12-14] MEDS ORDERED: IV FLUIDS COMPLETED PRN (21:00)
[2016-12-14] MEDS: NITROGLYCERIN 0.4 MG SL PER TAB CHARGE UT PRN ×2 (21:36→22:03)
[2016-12-14 22:01] VITALS: BP 112/69; PULSE 66
[2016-12-14 22:10] VITALS: Ht 180.3 cm; Wt 144.6 kg
[2016-12-14] MEDS: HEPARIN 25,000 UNIT/500ML D5W 500 ML IV PRN (22:28)
[2016-12-14 23:01] VITALS: BP 103/69
[2016-12-14 23:40] VITALS: BP 121/77; PULSE 63; TEMP 36.4; O2SAT 95
[2016-12-15 03:58] VITALS: BP 110/75; PULSE 55; TEMP 36.4; O2SAT 95
[2016-12-15 05:04] LABS: MEAN CELL VOLUME 90.9 fL (80-100); MEAN CORPUSCULAR HEMOGLOBIN 31.2 pg (25-34); MEAN CORPUSCULAR HGB CONC 34.3 g/dl (32-36); MEAN PLATELET VOLUME 10.5 fL (7.4-10.4); PLATELET COUNT 207 K/uL (130-400); RED BLOOD COUNT 4.62 M/uL (4.7-6.1); WHITE BLOOD COUNT 7.15 K/uL (4.8-10.8)
[2016-12-15 05:15] LABS: PARTIAL THROMBOPLASTIN RATIO 1.7
[2016-12-15 05:26] LABS: BLOOD UREA NITROGEN 10 mg/dl (7-18); BUN/CREATININE RATIO 15.5 (10-20); CALCIUM 8.4 mg/dl (8.5-10.1); CARBON DIOXIDE 29 mmol/L (21-32); CHLORIDE 108 mmol/L (98-107); CREATININE 0.63 mg/dl (0.60-1.40); GLUCOSE 94 mg/dl (70-99); MAGNESIUM 2.2 mg/dl (1.8-2.4); POTASSIUM 4.1 mmol/L (3.5-5.1); SODIUM 144 mmol/L (136-145)
[2016-12-15 05:29] LABS: CKMB/CK RATIO 1.6 (0-3.0)
[2016-12-15] MEDS ORDERED: HEPARIN IV BOLUS 4,000 UNIT in SYRINGE 0 ML IV STA (05:38)
[2016-12-15] MEDS: HEPARIN 25,000 UNIT/500ML D5W 500 ML IV PRN ×3 (06:03→11:31)
[2016-12-15 07:20] VITALS: BP 101/60; PULSE 55; TEMP 36.7; O2SAT 94
[2016-12-15 08:00] VITALS: O2SAT 94
[2016-12-15] MEDS ORDERED: EZETIMIBE 10MG TAB PO SCH (09:00)
[2016-12-15] MEDS ORDERED: ATORVASTATIN 40 MG TAB PO SCH (09:00)
[2016-12-15] MEDS ORDERED: ENOXAPARIN 40 MG/0.4 ML SYR SC SCH (09:00)
[2016-12-15] MEDS ORDERED: CLOPIDOGREL BISULFATE 75 MG TAB PO SCH (09:00)
[2016-12-15] MEDS: METOPROLOL TARTRATE 25 MG TAB PO SCH (09:00)
[2016-12-15] MEDS ORDERED: ASPIRIN 81 MG ECTAB PO SCH (09:00)
[2016-12-15] MEDS ORDERED: DIVALPROEX 500 MG EXTENDED RELEASE TAB PO SCH (09:00)
[2016-12-15 11:57] VITALS: BP_SYST 118; BP_SYST 125; BP_DIAS 74; BP_DIAS 83; PULSE 58; TEMP 36.8; O2SAT 94
[2016-12-15 12:21] LABS: PARTIAL THROMBOPLASTIN RATIO 2.4
--- NOTE | 2016-12-15 13:32 | CARDIOLOGY CONSULTATION ---
DATE OF CONSULTATION: 12/14/2016 REFERRING PHYSICIAN: Dr. Dulce Maria Clark. REASON FOR CONSULTATION: Chest pain. HISTORY OF PRESENT ILLNESS: Mr. Cope is a 46-year-old gentleman who is known to the cardiology service. He carries a history of coronary artery disease, prior circumflex stenting. He presented to the Emergency Room over the weekend with chest pain. He left against medical advice prior to any further testing. He returned to the ER last night with nearly continuous epigastric and chest pain which has been waxing and waning. Pain is worse after eating. It is not exertional. No associated shortness of breath. His pain is not responsive to sublingual nitro. Currently, pain free. He was ordered intravenous heparin overnight. Cardiac enzymes are undetectable, both over the weekend and today. He is somewhat agitated that he has had to wait to be seen today. He is also agitated that he has not been able to eat. Denies orthopnea, PND, lower extremity edema. Baseline gait dysfunction unchanged. REVIEW OF SYSTEMS: Pertinent findings noted above, a comprehensive 10-system review is otherwise negative. PAST MEDICAL HISTORY: 1. Coronary artery disease, prior circumflex stenting. 2. Dyslipidemia. 3. Obesity. 4. Tobacco use. 5. Bipolar disorder. PAST SURGICAL HISTORY: 1. Drug-eluting stent to left circumflex 2011. 2. Repeat cardiac catheterization performed in 2014 demonstrated patent stent with otherwise nonobstructive coronary disease. 3. Orthopedic ankle surgery. FAMILY HISTORY: Father with emphysema. No premature CAD or sudden cardiac . SOCIAL HISTORY: Active tobacco abuse. ALLERGIES: No known drug allergies. HOME MEDICATIONS: 1. Aspirin 81 mg daily. 2. Atorvastatin 80 mg daily. 3. Plavix 75 mg b.i.d. 4. Depakote 500 mg daily. 5. Zetia 10 mg daily. 6. Trazodone 50 mg at bedtime. ECG on admission, sinus bradycardia. Cardiac enzymes are negative x3 sets. PHYSICAL EXAMINATION: VITAL SIGNS: Stable. GENERAL: NAD, awake, alert and oriented x3. HEENT: Mucous membranes moist. No scleral icterus. Conjunctivae pink. NECK: Supple without JVD or HJR. No carotid bruit. HEART: Regular with a normal S1 and S2. No murmur, rub or gallop. LUNGS: Clear without rales, rhonchi or wheeze. ABDOMEN: Soft, nontender. No rebound or guarding. Normal bowel sounds. EXTREMITIES: Warm and dry without clubbing, cyanosis or edema. NEUROLOGIC: Demonstrates no focal deficit. FINAL IMPRESSION: 1. Atypical chest and epigastric discomfort -- no objective evidence of acute coronary syndrome, with nonischemic ECG and undetectable cardiac enzymes. No evidence of dysrhythmia on telemetry. 2. Chronic coronary disease with history of prior drug-eluting stent implantation in left circumflex. 3. History of possible bicuspid AV 4. Preserved left ventricular systolic function. 5. Dyslipidemia. 6. Active tobacco abuse. PLAN AND RECOMMENDATIONS: Recommend dobutamine stress echocardiography for further evaluation of atypical chest discomfort. The patient is agreeable. He will continue current cardiovascular medications including aspirin, Plavix, atorvastatin, and Zetia. He has a documented beta-dave intolerance. Heparin will be discontinued at this time. Further recommendations pending review of stress testing. MAYI
[2016-12-15] MEDS ORDERED: DOBUTamine HCL 12.5 MG/ML 20 ML VIAL ONE (15:22)
[2016-12-15] MEDS ORDERED: METOPROLOL TARTRATE 1 MG/ML VIAL ONE (15:23)
[2016-12-15] MEDS ORDERED: ATROPINE SULFATE 0.1 MG/ML 5ML SYR ONE (15:23)
--- NOTE | 2016-12-15 17:26 | Discharge Instructions ---
Discharge Instructions Admission Reason for Admission: Chest Pain Discharge Discharge Diagnosis / Problem: Atypical chest pain Discharge Goals Goal(s): Prevent Disease Progression Activity Recommendations Activity Limitations: resume your previous activity . Instructions / Follow-Up Instructions / Follow-Up Please take all medications as instructed. You have a follow-up appointment with you primary care provider (PCP), Dr. Shah , on 11/21 @ 10:50am. Your original Monday appointment was cancelled. Pleas bring all paperwork from this hospitalization to this appointment. It was a pleasure taking care of you! Call if you have any questions or problems. You can reach a [facility] hospitalist on duty at [facility] 24 hours a day by calling [phone]. Take care of yourself. Dulce Maria Clark DO [facility] Hospitalist Current Hospital Diet Patient's current hospital diet: AHA Diet (Heart Healthy) Discharge Diet Recommended Diet: AHA Diet (Heart Healthy) Procedures Procedures Performed: DSE 12/15 Pending Studies Studies pending at discharge: no Laboratory Results Hemoglobin A1c Test 12/11/16 15:30 Range/Units Estimated Average Glucose 108 mg/dl Hemoglobin A1c 5.4 4.5-5.6 % Lipid Panel Test 12/12/16 03:43 Range/Units Triglycerides Level 135 0-150 mg/dl Cholesterol Level 122 0-200 mg/dl HDL Cholesterol 36 mg/dl Cholesterol/HDL Ratio 3.4 LDL Cholesterol, Calculated 59 mg/dl Medical Emergencies . Who to Call and When: Medical Emergencies: If at any time you feel your situation is an emergency, please call 911 immediately. . Non-Emergent Contact Non-Emergency issues call your: Primary Care Provider . . "Provider Documentation" section prepared by Dulce Maria Clark. VTE Core Measure Inpt VTE Proph given/why not?: Other Anticoagulation (heparin drip)
--- NOTE | 2016-12-15 17:28 | Discharge Summary ---
Discharge Summary Admission Date: Dec 14, 2016 at 17:10 Discharge Date: Dec 15, 2016 Discharge Disposition: Home Principal Diagnosis: Atypical Chest pain Bipolar disoorder CAD s/p PCI-chronic Active smoking Procedures: DSE 12/15 Vaccinations: None. Consultations: Cardiology Pending Studies/Follow-Up: see instructions below Medication Reconciliation Continued Medications: Aspirin (Aspirin Ec) 81 Mg Tab 81 MG PO DAILY Atorvastatin (Lipitor) 80 Mg Tab 80 MG PO DAILY, TAB Clopidogrel (Plavix) 75 Mg Tab 75 MG PO DAILY, TAB Divalproex Sodium (Depakote Etended-Release) 500 Mg Tabcr 500 MG PO DAILY Ezetimibe (Zetia) 10 Mg Tab 10 MG PO DAILY, TAB Nitroglycerin (Nitrostat) 0.4 Mg Tab 0.4 MG UT UD PRN for Chest Pain, BTL Trazodone Hcl (Trazodone) 50 Mg Tab 50 MG PO HS PRN for Sleep, TAB Admission Information HPI (per Admitting provider): This is a 46 year old male with PMH of CAD s/p POOJA to L circumflex in 04/2012, tobacco abuse, obesity, bipolar disorder, who presents to the ED with waxing and waning chest pain x 5 days. Patient's import/export freight forwarder is Dr. Haque. Patient was admitted to [facility] 3 days ago on Dec 11, 2016 for chest pain R/O with EKG showing no sign of ischemia and troponin negative x 3. He was planned to have cardiology consultation and stress test the following morning but he left AMA before it could be done. Pt states he was thinking irrationally due to his bipolar disorder being exacerbated by the stress of being in the hospital. He returns today with continued chest pain. He states the chest pain is in sternal area described as pressure with radiation of shooting pain to bilateral shoulders. He states pain waxes and wanes for past 5 days. It is worse after eating. Today it worsened after having soup and crackers. It improves temporarily with nitro which he took around 1 pm. He denies exertional component although has not been exerting himself. Currently he is chest pain free. He states his prior [place] presented as pain in the shoulders. He reports chronic SWEET with 1 flight of stairs. Denies increased dyspnea from baseline. Denies change in chronic bilateral ankle edema. Denies diaphoresis, dizziness, syncope, palpitations, URI, cough, SOB at rest, orthopnea, nausea, vomiting, abdominal pain, reflux, bowel or bladder changes, calf pain. Pt reports intolerance to beta blockers due to bradycardia and weakness. Last stress echo positive for reversible ischemia, EF noted to be 63%. Subsequent cardiac catheterization on 03/17/16 showed patent LAD stent and nonobstructive disease. Denies hx of gallbladder disease or abdominal surgery. Physical Exam (per Admitting): General Appearance: no apparent distress, + obese, + pertinent finding ( alert cooperative 46 year old male ) Head: normocephalic, atraumatic Eyes: normal inspection, PERRL, EOMI ENT: hearing grossly normal, pharynx normal Neck: supple, no JVD, trachea midline Respiratory/Chest: chest non-tender, lungs clear, normal breath sounds, no respiratory distress Cardiovascular: regular rate, rhythm, no murmur Abdomen/GI: normal bowel sounds, non tender, soft Extremities/Musculoskelatal: no calf tenderness, normal capillary refill, + pertinent finding (trace BLLE edema) Neurologic/Psych: alert, normal mood/affect, oriented x 3, + pertinent finding (grossly nonfocal) Skin: normal color, warm/dry, no rash (no rash on the chest) Hospital Course 46 yoM with a h/o CAD s/p circumflex stenting in 2011 presented to the ER for the second time this week for continued chest pain similar to his index angina. Last cardiac catheterization was in 2014 and demonstrated a patent stent with otherwise nonobstructive disease. He previously left against medical advice, and returned because of persistent symptoms. He has notable anxiety in the setting of disabling Bipolar disorder. Cardiac enzymes were trended and negative, however, his pain was not responsive to sublingual nitroglycerin. As he was a higher risk, a heparin drip was ordered overnight and Cardiology was consulted. The following morning, he was chest-pain free and underwent dobutamine stress echo which was negative for inducible ischemia. As his pain was temporally related to food intake, he was thought to have atypical chest discomfort possibly related to his GI tract. He had no objective evidence of ACS, with a nonischemic EKG and no evidence of dysrhythmia on telemetry. He is an active smoker and was counseled to stop. On day of discharge physical exam was unremarkable, he was hemodynamically stable with a resolution of chest pain. HE was ambulatory and tolerating PO. He was discharged in stable condition with close PCP and cardiology follow-up as an outpatient. Of note, he has a documented beta dave intolerance, so this was not given at discharge. Additionally, from a cardiac standpoint, he should continued ASA, Plavix, Lipitor and Zetia Total time spent on discharge = 60 minutes This includes examination of the patient, discharge planning, medication reconciliation, and communication with other providers. Discharge Instructions Discharge Instructions Admission Reason for Admission: Chest Pain Discharge Discharge Diagnosis / Problem: Atypical chest pain Discharge Goals Goal(s): Prevent Disease Progression Activity Recommendations Activity Limitations: resume your previous activity . Instructions / Follow-Up Instructions / Follow-Up Please take all medications as instructed. You have a follow-up appointment with you primary care provider (PCP), Dr. Shah , on 12/22 @ 10:50am. Your original Monday appointment was cancelled. Pleas bring all paperwork from this hospitalization to this appointment. It was a pleasure taking care of you! Call if you have any questions or problems. You can reach a [facility] hospitalist on duty at [facility] 24 hours a day by calling [phone]. Take care of yourself. Dulce Maria Clark, DO [facility] Additional Copies To Nicola Shah M.D.
[2016-12-15 18:06] VITALS: BP 118/83; PULSE 58; TEMP 36.8; O2SAT 94
--- NOTE | 2016-12-15 19:11 | DOBUTAMINE ECHO ---
*NOTICE TO RECEIVING [employer] This information is strictly Confidential and protected under [place] law. [place] law prohibits you from making any further disclosure of this information unless further disclosure is expressly permitted by the written consent of the person to whom it pertains or is authorized by law. A general authorization for the release of medical or other information is not sufficient for this purpose. Hospital accepts no responsibility if the information is made available to any other person, INCLUDING THE PATIENT. Interpretation Summary * Name: JOSEPH ESCALERA Study Date: 12/15/2016 02:47 PM BP: 133/78 mmHg * Patient Location: [facility] HR: 44 * : 1970 (M/d/yyyy) Gender: Male Height: 71 in * Age: 46 yrs Ethnicity: [place] Weight: 318 lb * Ordering Physician: Pedrito Haque * Referring Physician: Self, Referred * Performed By: Winsome Valenzuela RCS * * Reason For Study: CHEST PAIN * BSA: 2.6 m2 * STRESS STUDY: Normal pharmacologic stress echocardiogram. No echocardiographic or ECG evidence of myocardial ischemia having achieved heart rate adequate for diagnostic purposes. * -- Conclusions -- * Ejection Fraction = 55-60%. * Resting wall motion: Normal. Stress wall motion: Appropriate increase in Left ventricular systolic function and decrease in cavity size. No stress induced segmental wall motion abnormalities. * Pulse wave TDI of the anterior and posterior mitral annulas demonstrates normal LV relaxation * Aortic valve sclerosis mild, without significant aortic valvular stenosis. * A bicuspid aortic valve cannot be excluded. Procedure Details * DOBUTAMINE ECHO, CPT#[id number] * ECHO COLOR FLOW, CPT #[id number] * ECHO DOPPLER, CPT #[id number] * The study was technically difficult with many images being suboptimal in quality. * A contrast injection of Definity was performed to improve assessment of LV function. * Contrast was injected into an intravenous site in the left arm. * One vial of Definity ultrasound contrast was diluted in normal saline to a total volume of 10 ml. A total of '8' ml of solution was administered during imaging. * Lot # [id number] of Definity utilized for procedure. * Expiration date NOV 05. * The attending nurse who injected the contrast agent was SHER ZAMBRANO RN. * ECHOEX, CPT #[id number] Left Ventricle * The left ventricle is normal in size. * There is mild concentric left ventricular hypertrophy. * Ejection Fraction = 55-60%. * Left ventricular systolic function is normal. * Resting wall motion: Normal. Stress wall motion: Appropriate increase in Left ventricular systolic function and decrease in cavity size. No stress induced segmental wall motion abnormalities. * The left ventricular ejection fraction increases normally with stress. The left ventricular end-systolic cavity size reduces post-stress (normal response). The left ventricular wall motion with stress is normal. Right Ventricle * The right ventricle is normal in size and function. Atria * The left atrial size is normal. * Right atrial size is normal. * No ASD detected; PFO is not assessed. Mitral Valve * The mitral valve is normal. * There is mild mitral annular calcification. * There is no mitral valve stenosis. * There is trace mitral regurgitation. Tricuspid Valve * The tricuspid valve is normal. * There is no tricuspid stenosis. * There is trace tricuspid regurgitation. Aortic Valve * Aortic valve sclerosis mild, without significant aortic valvular stenosis. * The aortic valve is not well visualized. * A bicuspid aortic valve cannot be excluded. * No hemodynamically significant valvular aortic stenosis. * No aortic regurgitation is present. Pulmonic Valve * The pulmonic valve is not well visualized. Great Vessels * The aortic root is normal size. Pericardium * There is no pericardial effusion. Stress Parameters * The baseline ECG displays normal sinus rhythm. * Stress ECG: No ST changes. No arrhythmias. * The stress portion of this study was personally supervised by the undersigned interpreting physician. * Rest heart rate was '44' BPM. * Rest blood pressure was '133/78' * Maximum heart rate achieved was 153 bpm. * Maximum heart rate was 87 % of maximum age-predicted heart rate. * Maximum blood pressure was '157/63' * Maximum Dobutamine infusion rate was '40' mcg/kg/min. * A total of 0.75 mg of intravenous Atropine was used to supplement Dobutamine for heart rate response. * Dobutamine infusion was terminated due to achieving target heart rate * A total of 5.0 mg of IV Metoprolol was administered to reverse Dobutamine-induced tachycardia. * Normal heart rate and blood pressure reponse to dobutamine infusion. Left Ventricular Diastolic Function * Pulse wave TDI of the anterior and posterior mitral annulas demonstrates normal LV relaxation MMode 2D Measurements and Calculations IVSd 1.2 cm IVSs 1.4 cm LVIDd 4.8 cm LVIDs 3.6 cm LVPWd 1.2 cm LVPWs 1.9 cm IVS/LVPW 0.99 FS 24.9 % EDV(Teich) 106.7 ml ESV(Teich) 54.1 ml EF(Teich) 49.3 % EDV(cubed) 109.5 ml ESV(cubed) 46.3 ml EF(cubed) 57.7 % % IVS thick 14.7 % % LVPW thick 54.5 % LV mass(C)d 216.5 grams LV mass(C)dI 84.3 grams/m\S\2 LV mass(C)s 224.8 grams LV mass(C)sI 87.5 grams/m\S\2 CO(Teich) 2.6 l/min CI(Teich) 1.0 l/min/m\S\2 SV(Teich) 52.6 ml SI(Teich) 20.5 ml/m\S\2 CO(cubed) 3.1 l/min CI(cubed) 1.2 l/min/m\S\2 SV(cubed) 63.2 ml SI(cubed) 24.6 ml/m\S\2 Ao root diam 3.9 cm Ao root area 11.7 cm\S\2 ACS 2.3 cm LA dimension 3.4 cm LA/Ao 0.88 LVOT diam 2.1 cm LVOT area 3.5 cm\S\2 LVAd ap4 36.3 cm\S\2 LVLd ap4 8.9 cm EDV(MOD-sp4) 122.0 ml LVAs ap4 19.7 cm\S\2 LVLs ap4 6.9 cm ESV(MOD-sp4) 47.0 ml EF(MOD-sp4) 61.5 % LVAd ap2 35.4 cm\S\2 LVLd ap2 8.9 cm EDV(MOD-sp2) 119.0 ml LVAs ap2 19.0 cm\S\2 LVLs ap2 7.7 cm ESV(MOD-sp2) 42.0 ml EF(MOD-sp2) 64.7 % CO(MOD-sp4) 3.7 l/min CI(MOD-sp4) 1.4 l/min/m\S\2 SV(MOD-sp4) 75.0 ml SI(MOD-sp4) 29.2 ml/m\S\2 CO(MOD-sp2) 3.8 l/min CI(MOD-sp2) 1.5 l/min/m\S\2 SV(MOD-sp2) 77.0 ml SI(MOD-sp2) 30.0 ml/m\S\2 Doppler Measurements and Calculations MV E max catherine 83.4 cm/sec MV A max catherine 70.1 cm/sec MV E/A 1.2 MV P1/2t max catherine 93.7 cm/sec MV P1/2t 145.4 msec MVA(P1/2t) 1.5 cm\S\2 MV dec slope 188.8 cm/sec\S\2 MV dec time 0.22 sec Ao V2 max 165.2 cm/sec Ao max PG 10.9 mmHg Ao max PG (full) 8.5 mmHg RADHA(V,A) 1.7 cm\S\2 RADHA(V,D) 1.7 cm\S\2 LV V1 max PG 2.4 mmHg LV V1 max 78.0 cm/sec PA V2 max 97.9 cm/sec PA max PG 3.9 mmHg PI max catherine 109.6 cm/sec PI max PG 4.8 mmHg PI dec slope 97.6 cm/sec\S\2 PI P1/2t 328.7 msec TR max catherine 249.2 cm/sec
== END 2016-12-15 18:35 | disposition home or self-care (01) ==
LOC: ENRESERVDT → ENRESERVTM → C.EDB 15:47 → C.MED 17:10
PROVIDERS: ADMIT Hospitalist; ATTEND Hospitalist
DX: R07.89 Other chest pain (principal); E66.9 Obesity, unspecified; E78.5 Hyperlipidemia, unspecified; F17.210 Nicotine dependence, cigarettes, uncomplicated; F31.9 Bipolar disorder, unspecified; I25.10 Atherosclerotic heart disease of native coronary artery without angina pectoris; I25.2 Old myocardial infarction; K76.0 Fatty (change of) liver, not elsewhere classified; R00.0 Tachycardia, unspecified; K80.20 Calculus of gallbladder without cholecystitis without obstruction; Z98.61 Coronary angioplasty status

== ENCOUNTER 2019-10-14 15:17 | Observation (INO) ==
--- NOTE | 2019-10-14 15:55 | Emergency Department Note ---
History of Present Illness General Chief complaint: Shortness of Breath/Dyspnea Stated complaint: DIZZY, FATIGUE, SOB Time Seen by Provider: 10/14/19 15:43 History of Present Illness This is a 49-year-old male with a past medical history significant for that of NSTEMI at age 41, with stent placement currently on Plavix that presents to the emergency department via private vehicle accompanied by with complaints of "dizzy, fatigue, shortness of breath". 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 He states that he became fatigued, dizzy and short of breath with exertion. He states that he was so short of breath that he was "gasping for air". He also notes he has had a cough and been dealing with bronchitis for about 2 weeks. He notes that this does not feel similar to that and was very concerned therefore prompting his arrival here today. He denies any fevers, chills, chest pain. Home Medications Home Medications Medication Instructions Recorded Confirmed Type aspirin 81 mg PO HS 11/29/18 10/14/19 History atorvastatin 80 mg PO HS 11/29/18 10/14/19 History clopidogrel [Plavix] 75 mg PO HS 11/29/18 10/14/19 History divalproex [Depakote ER] 250 mg PO HS 11/29/18 10/14/19 History ezetimibe [Zetia] 10 mg PO HS 11/29/18 10/14/19 History nitroglycerin 0.4 mg SUBLINGUAL DIRECTED PRN 11/29/18 10/14/19 History Lactase Enzyme 4,500 unit PO UD PRN 01/02/19 10/14/19 History omeprazole 20 mg PO HS 01/02/19 10/14/19 History albuterol sulfate 2 puff INHALATION QID PRN 10/14/19 10/14/19 History cannabidiol (CBD) extract 0 mg DAILY 10/14/19 10/14/19 History Allergies Allergy/AdvReac Type Severity Reaction Status Date / Time No Known Allergies Allergy Verified 10/14/19 16:45 Past Med/Surg History Medical History Bipolar disorder (Chronic) CAD (coronary artery disease) (Chronic) Colon polyps BENIGN GERD (gastroesophageal reflux disease) Hyperlipidemia (Chronic) Myocardial infarction (Chronic) 2011 Obesity (Chronic) Sleep apnea CPAP DEVICE Tobacco use disorder (Chronic) Surgical History History of ankle surgery right ankle fusion History of cardiac cath 2011- stent @ [facility] follows with Dr. 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 Beliefs That Will Affect Care: None marital status: Current Living Situation: Spouse Feels Safe at Home: Yes Smoking Status: Current every day smoker Tobacco Type: e-cigarettes ; Cigarettes Per Day: vapes the equivalent of 1 pack a day ; Second Hand Exposure: No ; Hx Alcohol Use: Yes Alcohol type: beer and hard liquor Alcohol Intake Frequency: Rarely Hx Substance Use: Yes (smokes marijuana 3 X WEEKLY (ADVISED), HALLUCINOGENS OCCAS.) substance use type: marijuana Substance Use Type Other:: daily vaping of cannabis (THC/CBD blend) Last Used Substance: Hours (ago) Review of Systems A total of 10 systems reviewed and were otherwise negative Physical Exam Vital Signs Vital Signs - 24 hr 10/14/19 15:25 10/14/19 15:57 10/14/19 15:59 Temperature 36.6 C Temperature Source Oral Pulse Rate 73 82 Pulse Rate from SpO2 Sensor 83 Respiratory Rate 18 22 Respiratory Effort / Characteristics Non-Labored Respiratory Depth Normal Blood Pressure 134/82 134/93 Blood Pressure Mean 99 110 Pulse Oximetry 95 95 96 Oxygen Delivery Method Room Air Room Air Sepsis Recent Fever Within 48 Hours No Sepsis New/Unexplained Change in Mental Status No Sepsis Action Taken by Nursing No Action Required 10/14/19 16:00 10/14/19 16:10 10/14/19 16:20 Temperature Temperature Source Pulse Rate 79 70 81 Pulse Rate from SpO2 Sensor 81 Respiratory Rate 17 16 22 Respiratory Effort / Characteristics Respiratory Depth Blood Pressure 145/93 H Blood Pressure Mean 113 Pulse Oximetry 95 Oxygen Delivery Method Sepsis Recent Fever Within 48 Hours Sepsis New/Unexplained Change in Mental Status Sepsis Action Taken by Nursing 10/14/19 16:30 10/14/19 16:40 10/14/19 16:50 Temperature Temperature Source Pulse Rate 83 78 79 Pulse Rate from SpO2 Sensor Respiratory Rate 14 17 17 Respiratory Effort / Characteristics Respiratory Depth Blood Pressure Blood Pressure Mean Pulse Oximetry Oxygen Delivery Method Sepsis Recent Fever Within 48 Hours Sepsis New/Unexplained Change in Mental Status Sepsis Action Taken by Nursing 10/14/19 17:00 10/14/19 17:10 10/14/19 17:20 Temperature Temperature Source Pulse Rate 81 78 83 Pulse Rate from SpO2 Sensor Respiratory Rate 20 21 21 Respiratory Effort / Characteristics Respiratory Depth Blood Pressure Blood Pressure Mean Pulse Oximetry Oxygen Delivery Method Sepsis Recent Fever Within 48 Hours Sepsis New/Unexplained Change in Mental Status Sepsis Action Taken by Nursing 10/14/19 18:05 10/14/19 18:10 10/14/19 18:20 Temperature Temperature Source Pulse Rate 70 74 76 Pulse Rate from SpO2 Sensor 68 74 73 Respiratory Rate 22 18 18 Respiratory Effort / Characteristics Respiratory Depth Blood Pressure 116/76 Blood Pressure Mean 89 Pulse Oximetry 96 96 96 Oxygen Delivery Method Sepsis Recent Fever Within 48 Hours Sepsis New/Unexplained Change in Mental Status Sepsis Action Taken by Nursing 10/14/19 18:30 10/14/19 18:40 10/14/19 19:00 Temperature Temperature Source Pulse Rate 77 83 79 Pulse Rate from SpO2 Sensor 77 82 78 Respiratory Rate 17 17 17 Respiratory Effort / Characteristics Respiratory Depth Blood Pressure 117/88 Blood Pressure Mean 97 Pulse Oximetry 96 95 94 Oxygen Delivery Method Sepsis Recent Fever Within 48 Hours Sepsis New/Unexplained Change in Mental Status Sepsis Action Taken by Nursing 10/14/19 19:04 Temperature Temperature Source Pulse Rate 70 Pulse Rate from SpO2 Sensor 74 Respiratory Rate 17 Respiratory Effort / Characteristics Respiratory Depth Blood Pressure 142/96 H Blood Pressure Mean 118 Pulse Oximetry 94 Oxygen Delivery Method Sepsis Recent Fever Within 48 Hours Sepsis New/Unexplained Change in Mental Status Sepsis Action Taken by Nursing VITAL SIGNS - Vital signs and nursing notes were reviewed. Stable and afebrile. GENERAL -49-year-old male appearing his stated age who is in no acute distress. Communicates well with provider and answers questions appropriately. SKIN - Without rashes. HEAD - NC/AT. EYES - Sclera anicteric. Palpebral conjunctiva pink and moist with no injection noted. EARS - No deformities of external structures noted on gross examination bilaterally. NOSE - Midline and without cyanosis. No epistaxis or purulent drainage noted. MOUTH/OROPHARYNX - Without perioral cyanosis. NECK - Neck with FROM. No nuchal rigidity. LUNGS - Chest wall symmetric without accessory muscle use, intercostals retractions, or central cyanosis. Normal vesicular breath sounds CTA B/L. No wheezes, rales, or rhonchi appreciated. CARDIAC - RRR with S1/S2. No murmur, rubs, or gallops appreciated. EXTREMITIES - No clubbing or peripheral cyanosis. No pretibial edema present. +5/5 strength noted in UE/LE bilaterally. NEUROLOGIC - Cranial nerves II through XII grossly intact. PSYCH - A&O, and cooperates fully with examiner. Pt is very pleasant and interacts well with examiner. Course Administered Medications Aspirin (Ecotrin Ectab) 81 mg PO HS [facility] Stop: 11/13/19 20:59 Last Admin: 10/14/19 21:28 Dose: 81 mg Documented by: [id number] Atorvastatin Calcium (Lipitor) 80 mg PO HS [facility] Stop: 11/13/19 20:59 Last Admin: 10/14/19 21:27 Dose: 80 mg Documented by: [id number] Clopidogrel Bisulfate (Plavix) 75 mg PO HS [facility] Stop: 11/13/19 20:59 Last Admin: 10/14/19 21:28 Dose: 75 mg Documented by: [id number] Divalproex Sodium (Depakote Extended Release) 250 mg PO HS [facility] Stop: 11/13/19 20:59 Last Admin: 10/14/19 21:28 Dose: 250 mg Documented by: [id number] Ezetimibe (Zetia) 10 mg PO HS [facility] Stop: 11/13/19 20:59 Last Admin: 10/14/19 21:27 Dose: 10 mg Documented by: [id number] Heparin Sodium (Porcine) (Heparin Sodium (Porcine)) 5,000 units SQ Q8 [facility] Stop: 11/13/19 21:59 Last Admin: 10/14/19 21:28 Dose: 5,000 units Documented by: [id number] Cosigned by: [id number] Lorazepam (Ativan) 0.5 mg PO Q6H PRN PRN Reason: Anxiety/Agitation Stop: 11/13/19 21:00 Last Admin: 10/14/19 21:33 Dose: 0.5 mg Documented by: [id number] Pantoprazole Sodium (Protonix) 40 mg PO HS [facility] Stop: 11/13/19 20:59 Last Admin: 10/14/19 21:28 Dose: 40 mg Documented by: [id number] Discontinued Medications Aspirin (Aspirin) 324 mg PO NOW STA Stop: 10/14/19 18:57 Last Admin: 10/14/19 19:03 Dose: 324 mg Documented by: [id number] Ioversol (Optiray 320 125ml) 115 ml IV ONCE PRN PRN Reason: Interaction Checking Stop: 10/18/19 18:00 Last Admin: 10/14/19 18:01 Dose: 115 ml Documented by: [id number] Lorazepam (Ativan) 1 mg SL NOW STA Stop: 10/14/19 17:44 Last Admin: 10/14/19 17:47 Dose: 1 mg Documented by: [id number] Medical Decision Making Laboratory Data Result diagrams: 10/14/19 16:12 10/14/19 16:12 Lab Results 10/14/19 10/14/19 10/14/19 Range/Units 16:12 16:12 16:12 WBC 9.25 (4.8-10.8) K/uL RBC 4.57 L (4.7-6.1) M/uL Hgb 13.8 L (14.0-18.0) g/dL Hct 41.7 L (42-52) % MCV 91.2 (80-100) fL MCH 30.2 (25-34) pg MCHC 33.1 (32-36) g/dL RDW Std Deviation 45.9 (36.4-46.3) fL RDW Coeff of Jamir 13.9 (11.5-14.5) % Plt Count 229 (130-400) K/uL MPV 10.0 (7.4-10.4) fL Immature Gran % (Auto) 0.2 % Neut % (Auto) 61.7 % Lymph % (Auto) 28.5 % [place] % (Auto) 6.7 % Eos % (Auto) 2.6 % Baso % (Auto) 0.3 % Immature Gran # (Auto) 0.02 (0.00-0.02) K/uL Neut # (Auto) 5.70 (1.4-6.5) K/uL Lymph # (Auto) 2.64 (1.2-3.4) K/uL [place] # (Auto) 0.62 H (0.11-0.59) K/uL Eos # (Auto) 0.24 (0-0.5) K/uL Baso # (Auto) 0.03 (0-0.2) K/uL PT 12.8 H (9.0-12.0) Seconds INR 1.3 H (0.9-1.1) APTT 34.4 H (21.0-31.0) Seconds PTT Ratio 1.3 Sodium 139 (136-145) mmol/L Potassium 3.9 (3.5-5.1) mmol/L Chloride 107 (98-107) mmol/L Carbon Dioxide 29 (21-32) mmol/L Anion Gap 3.0 (3-11) BUN 15 (7-18) mg/dl Creatinine 0.82 (0.6-1.4) mg/dl Est Cr Clr Drug Dosing Not Reportable Est GFR ( Amer) 121.2 Est GFR (Non-Af Amer) 104.6 BUN/Creatinine Ratio 18.3 (10-20) Glucose 89 (70-99) mg/dl Calcium 8.6 (8.5-10.1) mg/dl Magnesium 2.1 (1.8-2.4) mg/dl Total Bilirubin 0.4 (0.2-1) mg/dl AST 13 L (15-37) U/L ALT 30 (12-78) U/L Alkaline Phosphatase 86 (45-117) U/L Troponin I < 0.015 (0-0.045) ng/ml NT-Pro-B Natriuret Pep 99 (0-450) pg/ml Total Protein 6.6 (6.4-8.2) gm/dl Albumin 3.5 (3.4-5.0) gm/dl Globulin 3.1 (2.5-4.0) gm/dl Albumin/Globulin Ratio 1.1 (0.9-2) TSH 1.120 (0.300-4.500) uIu/ml Urine Color Urine Appearance (Clear) Urine pH (4.5-7.5) Ur Specific [place] (1.000-1.030) Urine Protein (Negative) Urine Glucose (UA) (Negative) Urine Ketones (Negative) Urine Blood (Negative) Urine Nitrite (Negative) Urine Bilirubin (Negative) Urine Urobilinogen (Negative) Ur Leukocyte Esterase (Negative) 10/14/19 Range/Units 19:01 WBC (4.8-10.8) K/uL RBC (4.7-6.1) M/uL Hgb (14.0-18.0) g/dL Hct (42-52) % MCV (80-100) fL MCH (25-34) pg MCHC (32-36) g/dL RDW Std Deviation (36.4-46.3) fL RDW Coeff of Jamir (11.5-14.5) % Plt Count (130-400) K/uL MPV (7.4-10.4) fL Immature Gran % (Auto) % Neut % (Auto) % Lymph % (Auto) % [place] % (Auto) % Eos % (Auto) % Baso % (Auto) % Immature Gran # (Auto) (0.00-0.02) K/uL Neut # (Auto) (1.4-6.5) K/uL Lymph # (Auto) (1.2-3.4) K/uL [place] # (Auto) (0.11-0.59) K/uL Eos # (Auto) (0-0.5) K/uL Baso # (Auto) (0-0.2) K/uL PT (9.0-12.0) Seconds INR (0.9-1.1) APTT (21.0-31.0) Seconds PTT Ratio Sodium (136-145) mmol/L Potassium (3.5-5.1) mmol/L Chloride (98-107) mmol/L Carbon Dioxide (21-32) mmol/L Anion Gap (3-11) BUN (7-18) mg/dl Creatinine (0.6-1.4) mg/dl Est Cr Clr Drug Dosing Est GFR ( Amer) Est GFR (Non-Af Amer) BUN/Creatinine Ratio (10-20) Glucose (70-99) mg/dl Calcium (8.5-10.1) mg/dl Magnesium (1.8-2.4) mg/dl Total Bilirubin (0.2-1) mg/dl AST (15-37) U/L ALT (12-78) U/L Alkaline Phosphatase (45-117) U/L Troponin I (0-0.045) ng/ml NT-Pro-B Natriuret Pep (0-450) pg/ml Total Protein (6.4-8.2) gm/dl Albumin (3.4-5.0) gm/dl Globulin (2.5-4.0) gm/dl Albumin/Globulin Ratio (0.9-2) TSH (0.300-4.500) uIu/ml Urine Color Yellow Urine Appearance Clear (Clear) Urine pH 5.0 (4.5-7.5) Ur Specific [place] > 1.045 H (1.000-1.030) Urine Protein Negative (Negative) Urine Glucose (UA) Negative (Negative) Urine Ketones Negative (Negative) Urine Blood Negative (Negative) Urine Nitrite Negative (Negative) Urine Bilirubin Negative (Negative) Urine Urobilinogen Negative (Negative) Ur Leukocyte Esterase Negative (Negative) Imaging Data Radiologist's Impression: CT SCAN OF THE BRAIN WITHOUT IV CONTRAST CLINICAL HISTORY: Fatigue. Dizziness. COMPARISON STUDY: No priors. TECHNIQUE: Unenhanced axial CT scan of the brain is performed from the vertex to the skull base. A dose lowering technique was utilized adhering to the pr inciples of TERI. FINDINGS: Brain parenchyma: The brain parenchyma is normal in appearance. There is no hemorrhage, mass effect, or evidence of acute territorial ischemia by CT criteria. Bryant-white matter differentiation is preserved. No extra-axial fluid collection is seen. Ventricles, sulci, cisterns: Normal in configuration. Intracranial vasculature: There is mild atherosclerotic calcification of the cavernous carotid arteries. Calvarium: Unremarkable. Sinuses and mastoids: There is trace mucosal thickening within the left maxillary antrum. The remaining visualized paranasal sinuses are clear. The mastoid air cells are well pneumatized. Orbits: The bony orbits are grossly intact. IMPRESSION: No acute intracranial abnormality. Electronically signed by: Carloz Flynn M.D. 10/14/2019 6:[address] ANGIOGRAM OF THE CHEST CLINICAL HISTORY: Dyspnea. Dizziness. Fatigue. COMPARISON STUDY: Chest CT dated 04/30/2012. Chest x-ray dated 11/29/2018. TECHNIQUE: Following the IV administration of 115 cc of Optiray 320, CT angiogram of the chest was performed from the upper abdomen to the thoracic inlet utilizing the pulmonary embolus protocol. Images are reviewed in the axial, sagittal, and coronal planes. 3-D MIPS images are created and assessed. IV contrast was administered without complication. A dose lowering technique was utilized adhering to the principles of ALARA. CT DOSE: 1937.47 mGy.cm FINDINGS: Thyroid: Imaged portions of the thyroid gland are normal in size and attenuation. Thoracic aorta: The thoracic aorta is normal in caliber and demonstrates 4-vessel variant arch anatomy. No dissection is seen. Pulmonary vasculature: The pulmonary trunk is normal in caliber. There are no filling defects identified in main, lobar, or segmental pulmonary branches to suggest pulmonary embolus. Heart: The heart is top normal in size and without pericardial effusion. The coronary arteries are densely calcified. Lungs and pleural spaces: Minimal emphysematous change is noted in the apices. There is no airspace consolidation or pleural effusion. The trachea and central airways are clear. Mild diffuse peribronchial thickening is observed. A 3 mm pleural-based nodule in the left lower lobe is seen on image #159. This is unchanged from 2012 and of doubtful significance. Mediastinum: There is no mediastinal lymphadenopathy. Lashay: Clear. Axillae: There is no axillary lymphadenopathy. Upper abdomen: The liver is enlarged and steatotic. There are calcified gallstones. A small hiatal hernia is noted. Skeletal structures: No lytic or blastic bony lesions are seen. IMPRESSION: 1. There is no evidence of pulmonary embolus in the main, lobar, or segmental pulmonary arteries. 2. There is no airspace consolidation or pleural effusion. 3. There is mild diffuse peribronchial thickening. Poorly clinically for evidence of reactive airway disease/bronchitis. 4. The coronary arteries are densely calcified. Consider nonemergent cardiology follow-up. 5. Hepatic steatosis and cholelithiasis. 6. Additional findings as above. Electronically signed by: Carloz Flynn M.D. 10/14/2019 6:15 PM MDM Narrative Patient was seen and evaluated as above in room B07. Review was performed of nursing notes and vital signs. After obtaining a thorough history and physical examination the above work up was performed. He presents to us today with exertional shortness of breath, fatigue and dizziness described as vertigo. He is nontoxic on exam. He has no focal neurologic deficit. No active chest pain. He has a history of IA in the past. EKG was obtained, and reveals normal sinus rhythm with sinus arrhythmia at a rate of 66 bpm. There is no ectopy or ischemic change. QTc 385. No significant change when compared to previous. CTA was obtained of the chest given the patient's exertional dyspnea and this was negative for PE. There were densely calcified coronary arteries and mild diffuse peribronchial thickening. The patient notes that he is experiencing some bronchitis I do not believe that this is causing his symptoms and he notes that he has been dealing with this for several weeks and been fine and today had a significant and notable dyspnea on exertion. CBC at this time reveals no le ukocytosis. Mild anemia noted. INR 1.3. No significant metabolic disturbance. Troponin is negative. Urinalysis is negative. A CT scan was also obtained of the head given the patient's symptoms of vertigo prior to arrival and this was negative for acute process. Given the patient's past medical history, history of IA, symptoms, dyspnea on exertion that is significantly changed from baseline I do believe that further evaluation in the main patient setting is warranted. I again do not believe that his dyspnea on exertion today is from that of just his bronchitis. Patient will be admitted for further evaluation and management. GCS: 15 In the evaluation and treatment of this patient, the following differential diagnoses were considered: IA, ASC, Dysrhythmia, Angina, Mediastinitis, GERD, Esophagitis, PE, Pneumonia, Bronchitis, Costochondritis, Rib Fracture, Zoster, among others. Impression & Plan Exertional dyspnea, Dizziness, Fatigue Discharge Plan Visit Data *Final* Discharge Date/Time: 10/14/19 19:59 Chief Complaint: Shortness of Breath/Dyspnea Stated Complaint: DIZZY, FATIGUE, SOB ED Provider: Janina Mishra ED Midlevel Provider: Connor Najera Discharge Problem: Exertional dyspnea, Dizziness, Fatigue Patient Disposition: Admitted As Inpatient Condition: Good Discharge Instructions Interventions: ED Discharge Assessment Last Done: 10/14/19 19:59
[2019-10-14 16:27] LABS: Basophils # (auto) 0.03 K/uL (0-0.2); Basophils % (auto) 0.3 %; Eosinophils # (auto) 0.24 K/uL (0-0.5); Eosinophils % (auto) 2.6 %; Hematocrit (blood only) 41.7 % (42-52); Hemoglobin 13.8 g/dL (14.0-18.0); Immature Granulocytes # (auto) 0.02 K/uL (0.00-0.02); Immature Granulocytes % (auto) 0.2 %; Lymphocytes # (auto) 2.64 K/uL (1.2-3.4); Lymphocytes % (auto) 28.5 %; Mean Corpuscular Hemoglobin 30.2 pg (25-34); Mean Corpuscular Hgb Conc 33.1 g/dL (32-36); Mean Corpuscular Volume 91.2 fL (80-100); Monocytes # (auto) 0.62 K/uL (0.11-0.59); Monocytes % (auto) 6.7 %; Neutrophils % (auto) 61.7 %; Platelet Count 229 K/uL (130-400); RDW Coefficient of Variation 13.9 % (11.5-14.5); RDW Standard Deviation 45.9 fL (36.4-46.3); Red Blood Count 4.57 M/uL (4.7-6.1); White Blood Count 9.25 K/uL (4.8-10.8)
[2019-10-14 16:35] LABS: INR 1.3 (0.9-1.1); Partial Thromboplastin Ratio 1.3; Partial Thromboplastin Time 34.4 Seconds (21.0-31.0); Prothrombin Time 12.8 Seconds (9.0-12.0)
[2019-10-14 16:43] LABS: Alanine Aminotransferase 30 U/L (12-78); Albumin Level 3.5 gm/dl (3.4-5.0); Aspartate Aminotransferase 13 U/L (15-37); BUN Creatinine Ratio 18.3 (10-20); Blood Urea Nitrogen 15 mg/dl (7-18); Calcium 8.6 mg/dl (8.5-10.1); Carbon Dioxide 29 mmol/L (21-32); Chloride 107 mmol/L (98-107); Est GFR (African American) 121.2; Est GFR (Non-African American) 104.6; Glucose 89 mg/dl (70-99); Magnesium 2.1 mg/dl (1.8-2.4); Potassium 3.9 mmol/L (3.5-5.1); Sodium 139 mmol/L (136-145)
[2019-10-14 16:54] LABS: Albumin Globulin Ratio 1.1 (0.9-2); Alkaline Phosphatase 86 U/L (45-117); Bilirubin,Total 0.4 mg/dl (0.2-1); Globulin 3.1 gm/dl (2.5-4.0); NT Pro B Type Natriuretic Pept 99 pg/ml (0-450); Total Protein 6.6 gm/dl (6.4-8.2); Troponin I < 0.015 ng/ml (0-0.045)
[2019-10-14] MEDS ORDERED: LORazepam 1 MG TAB SL STA (17:43)
[2019-10-14] MEDS ORDERED: OPTIRAY 320 125ml IV PRN (18:01)
--- NOTE | 2019-10-14 18:09 | CT Scan Report ---
CT SCAN OF THE BRAIN WITHOUT IV CONTRAST CLINICAL HISTORY: Fatigue. Dizziness. COMPARISON STUDY: No priors. TECHNIQUE: Unenhanced axial CT scan of the brain is performed from the vertex to the skull base. A d ose lowering technique was utilized adhering to the principles of ALARA. FINDINGS: Brain parenchyma: The brain parenchyma is normal in appearance. There is no hemorrhage, mass effect, or evidence of acute territorial ischemia by CT criteria. Bryant-white matter differentiation is preser chalo. No extra-axial fluid collection is seen. Ventricles, sulci, cisterns: Normal in configuration. Intracranial vasculature: There is mild atherosclerotic calcification of the cavernous carotid arteri es. Calvarium: Unremarkable. Sinuses and mastoids: There is trace mucosal thickening within the left maxillary antrum. The remaini ng visualized paranasal sinuses are clear. The mastoid air cells are well pneumatized. Orbits: The bony orbits are grossly intact. IMPRESSION: No acute intracranial abnormality. Electronically signed by: Carloz Flynn M.D. 10/14/2019 6:07 PM
--- NOTE | 2019-10-14 18:17 | CT Scan Report ---
CT ANGIOGRAM OF THE CHEST CLINICAL HISTORY: Dyspnea. Dizziness. Fatigue. COMPARISON STUDY: Chest CT dated 04/30/2012. Chest x-ray dated 11/29/2018. TECHNIQUE: Following the IV administration of 115 cc of Optiray 320, CT angiogram of the chest was pe rformed from the upper abdomen to the thoracic inlet utilizing the pulmonary embolus protocol. Images are reviewed in the axial, sagittal, and coronal planes. 3-D MIPS images are created and assessed. I V contrast was administered without complication. A dose lowering technique was utilized adhering to the principles of ALARA. CT DOSE: 1937.47 mGy.cm FINDINGS: Thyroid: Imaged portions of the thyroid gland are normal in size and attenuation. Thoracic aorta: The thoracic aorta is normal in caliber and demonstrates 4-vessel variant arch anatom y. No dissection is seen. Pulmonary vasculature: The pulmonary trunk is normal in caliber. There are no filling defects identif ied in main, lobar, or segmental pulmonary branches to suggest pulmonary embolus. Heart: The heart is top normal in size and without pericardial effusion. The coronary arteries are de nsely calcified. Lungs and pleural spaces: Minimal emphysematous change is noted in the apices. There is no airspace c onsolidation or pleural effusion. The trachea and central airways are clear. Mild diffuse peribronchi al thickening is observed. A 3 mm pleural-based nodule in the left lower lobe is seen on image #159. This is unchanged from 2012 and of doubtful significance. Mediastinum: There is no mediastinal lymphadenopathy. Lashay: Clear. Axillae: There is no axillary lymphadenopathy. Upper abdomen: The liver is enlarged and steatotic. There are calcified gallstones. A small hiatal he rnia is noted. Skeletal structures: No lytic or blastic bony lesions are seen. IMPRESSION: 1. There is no evidence of pulmonary embolus in the main, lobar, or segmental pulmonary arteries. 2. There is no airspace consolidation or pleural effusion. 3. There is mild diffuse peribronchial thickening. Poorly clinically for evidence of reactive airway disease/bronchitis. 4. The coronary arteries are densely calcified. Consider nonemergent cardiology follow-up. 5. Hepatic steatosis and cholelithiasis. 6. Additional findings as above. Electronically signed by: Carloz Flynn M.D. 10/14/2019 6:15 PM
[2019-10-14] MEDS ORDERED: ASPIRIN CHEW 324 MG PO STA (18:56)
--- NOTE | 2019-10-14 19:22 | History & Physical Report ---
Date of Service October 14, 2019 Assessment & Plan (1) Exertional dyspnea: (2) Dizziness: This is a 49yo M with a PMH of CAD (s/p POOJA to LCx in 2011), bipolar disorder, PALOMO on CPAP, daily marijuana use and other medical problems listed below who presents after developing shortness of breath and dizziness this afternoon that have since resolved. -SOB and dizziness have resolved, still feels fatigued. Deconditioning likely contributing to symptoms -H/o KS in 2011 and was concerned about ACS today. EKG without ischemic event, initial troponin negative -Exercise stress echo from 02/05 without inducible ischemic -Head CT without acute intracranial abnormality -Chest CTA with no evidence of pulmonary embolus in the main, lobar, segmental pulmonary arteries, there is no airspace consolidation or pleural effusion -Monitor on telemetry, trend troponin. Consider cardiology consult if symptoms worsen (3) CAD (coronary artery disease): S/p POOJA to Lcx in 2011 -Continue aspirin, plavix, statin (4) Bipolar disorder: Stable. Continue Depakote (5) Hyperlipidemia: Continue statin, Zetia (6) Cannabis dependence, daily use: Vapes THC/CBD multiple times a day (7) Tobacco use disorder: Vapes nicotine. Is trying to quit DVT Ppx: SQ heparin Code status: FULL PCP: Michelle Lou Dispo: Observation telemetry. Plan to return home once medically stable Patient seen in collaboration with Dr. Warren. Please see addendum. History of Present Illness Chief Complaint: dizziness, SOB Primary Care Provider: Ana Lou, This is a 49yo M with a PMH of CAD (s/p POOJA to LCx in 2011), bipolar disorder, PALOMO on CPAP, daily marijuana use and other medical problems listed below who presents after developing shortness of breath and dizziness this afternoon. Patient was raking his leaves when he became dyspneic and dizzy. Even after stopping his unable to catch his breath so I found to the ED for further evaluation. Patient recently had bronchitis so states that his breathing is not back to baseline. Also has history of KS in 2011 that presented with shortness of breath and right shoulder pain, so was concerned about another cardiac event. Since arrival to ED, symptoms have resolved with the exception of some residual lightheadedness. Denies any fever, chills, visual changes, cough, chest pain, palpitations, shortness of breath, wheezing, nausea, vomiting, abdominal pain, dysuria, diarrhea or constipation. Allergies Allergy/AdvReac Type Severity Reaction Status Date / Time No Known Allergies Allergy Verified 10/14/19 16:45 Home Medications Home Medications Medication Instructions Recorded Confirmed Type aspirin 81 mg PO HS 11/29/18 10/14/19 History atorvastatin 80 mg PO HS 11/29/18 10/14/19 History clopidogrel [Plavix] 75 mg PO HS 11/29/18 10/14/19 History divalproex [Depakote ER] 250 mg PO HS 11/29/18 10/14/19 History ezetimibe [Zetia] 10 mg PO HS 11/29/18 10/14/19 History nitroglycerin 0.4 mg SUBLINGUAL DIRECTED PRN 11/29/18 10/14/19 History Lactase Enzyme 4,500 unit PO UD PRN 01/02/19 10/14/19 History omeprazole 20 mg PO HS 01/02/19 10/14/19 History albuterol sulfate 2 puff INHALATION QID PRN 10/14/19 10/14/19 History cannabidiol (CBD) extract 0 mg DAILY 10/14/19 10/14/19 History Past Med/Surg History Medical History Bipolar disorder (Chronic) CAD (coronary artery disease) (Chronic) Colon polyps BENIGN GERD (gastroesophageal reflux disease) Hyperlipidemia (Chronic) Myocardial infarction (Chronic) 2011 Obesity (Chronic) Sleep apnea CPAP DEVICE Tobacco use disorder (Chronic) Surgical History History of ankle surgery right ankle fusion History of cardiac cath 2011- stent @ [facility] follows with Dr. 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 Beliefs That Will Affect Care: None marital status: Current Living Situation: Spouse Feels Safe at Home: Yes Smoking Status: Current every day smoker Tobacco Type: e-cigarettes ; Cigarettes Per Day: vapes the equivalent of 1 pack a day ; Second Hand Exposure: No ; Hx Alcohol Use: Yes Alcohol type: beer and hard liquor Alcohol Intake Frequency: Rarely Hx Substance Use: Yes (smokes marijuana 3 X WEEKLY (ADVISED), HALLUCINOGENS OCCAS.) substance use type: marijuana Substance Use Type Other:: daily vaping of cannabis (THC/CBD blend) Last Used Substance: Hours (ago) Review of Systems Review of Systems: At least ten systems reviewed and negative except as noted in the HPI. Physical Exam Physical Exam: General Appearance: WD/WN, vitals as above, NAD, sitting up in bed, pleasant, conversing easily, morbidly obese Head: normocephalic, atraumatic Eyes: normal inspection, PERRL, conjunctivae normal, anicteric sclerae ENT: external ear and nose normal, oropharynx normal Neck: trachea midline, no thyromegaly normal visual inspection Respiratory: normal respiratory effort, lungs clear to auscultation, no wheeze, rales, rhonchi. Normal insp/exp effort, no accessory muscle use Cardiovascular: regular rate, rhythm, no murmur, normal peripheral pulses. Vessels: no JVD or carotid bruit Chest: normal inspection of chest Abdomen/GI: normal bowel sounds, soft, nontender, no hepatosplenomegaly Extremities/Musculoskelatal: no cyanosis or clubbing, extremities motor strength 5/5 Neurologic: PERRL, EOMI, accommodation nl, no face palsy, no dysarthria CN's II-XI intact bilaterally and moves all extremities Psychiatric: A+Ox3, euthymic affect Skin: no rashes, normal color, warm/dry Results & Data Vital Signs (Past 12 Hours) Vital Signs Temp Pulse Resp BP Pulse Ox 10/14/19 19:00 79 17 94 10/14/19 18:40 83 17 95 10/14/19 18:30 77 17 117/88 96 10/14/19 18:20 76 18 96 10/14/19 18:10 74 18 96 10/14/19 18:05 70 22 116/76 96 10/14/19 17:20 83 21 10/14/19 17:10 78 21 10/14/19 17:00 81 20 10/14/19 16:50 79 17 10/14/19 16:40 78 17 10/14/19 16:30 83 14 10/14/19 16:20 81 22 10/14/19 16:10 70 16 10/14/19 16:00 79 17 145/93 H 95 10/14/19 15:59 96 10/14/19 15:57 82 22 134/93 95 10/14/19 15:25 36.6 C 73 18 134/82 95 Laboratory Results Short CBC 10/14/19 10/14/19 10/14/19 Range/Units 16:12 16:12 16:12 WBC 9.25 (4.8-10.8) K/uL RBC 4.57 L (4.7-6.1) M/uL Hgb 13.8 L (14.0-18.0) g/dL Hct 41.7 L (42-52) % MCV 91.2 (80-100) fL MCH 30.2 (25-34) pg MCHC 33.1 (32-36) g/dL RDW Std Deviation 45.9 (36.4-46.3) fL RDW Coeff of Jamir 13.9 (11.5-14.5) % Plt Count 229 (130-400) K/uL MPV 10.0 (7.4-10.4) fL Immature Gran % (Auto) 0.2 % Neut % (Auto) 61.7 % Lymph % (Auto) 28.5 % [place] % (Auto) 6.7 % Eos % (Auto) 2.6 % Baso % (Auto) 0.3 % Immature Gran # (Auto) 0.02 (0.00-0.02) K/uL Neut # (Auto) 5.70 (1.4-6.5) K/uL Lymph # (Auto) 2.64 (1.2-3.4) K/uL [place] # (Auto) 0.62 H (0.11-0.59) K/uL Eos # (Auto) 0.24 (0-0.5) K/uL Baso # (Auto) 0.03 (0-0.2) K/uL PT 12.8 H (9.0-12.0) Seconds INR 1.3 H (0.9-1.1) APTT 34.4 H (21.0-31.0) Seconds PTT Ratio 1.3 Sodium 139 (136-145) mmol/L Potassium 3.9 (3.5-5.1) mmol/L Chloride 107 (98-107) mmol/L Carbon Dioxide 29 (21-32) mmol/L Anion Gap 3.0 (3-11) BUN 15 (7-18) mg/dl Creatinine 0.82 (0.6-1.4) mg/dl Est Cr Clr Drug Dosing Not Reportable Est GFR ( Amer) 121.2 Est GFR (Non-Af Amer) 104.6 BUN/Creatinine Ratio 18.3 (10-20) Glucose 89 (70-99) mg/dl Calcium 8.6 (8.5-10.1) mg/dl Magnesium 2.1 (1.8-2.4) mg/dl Total Bilirubin 0.4 (0.2-1) mg/dl AST 13 L (15-37) U/L ALT 30 (12-78) U/L Alkaline Phosphatase 86 (45-117) U/L Troponin I < 0.015 (0-0.045) ng/ml NT-Pro-B Natriuret Pep 99 (0-450) pg/ml Total Protein 6.6 (6.4-8.2) gm/dl Albumin 3.5 (3.4-5.0) gm/dl Globulin 3.1 (2.5-4.0) gm/dl Albumin/Globulin Ratio 1.1 (0.9-2) TSH 1.120 (0.300-4.500) uIu/ml BMP 10/14/19 16:12 Sodium 139 Potassium 3.9 Chloride 107 Carbon Dioxide 29 BUN 15 Creatinine 0.82 Glucose 89 Calcium 8.6 Cardiac Enzymes 10/14/19 Range/Units 16:12 Troponin I < 0.015 (0-0.045) ng/ml Liver Function 10/14/19 Range/Units 16:12 Total Bilirubin 0.4 (0.2-1) mg/dl AST 13 L (15-37) U/L ALT 30 (12-78) U/L Alkaline Phosphatase 86 (45-117) U/L Albumin 3.5 (3.4-5.0) gm/dl Diagnostic Findings CT head: IMPRESSION: No acute intracranial abnormality. Chest CTA: IMPRESSION: 1. There is no evidence of pulmonary embolus in the main, lobar, or segmental pulmonary arteries. 2. There is no airspace consolidation or pleural effusion. 3. There is mild diffuse peribronchial thickening. Poorly clinically for evidence of reactive airway disease/bronchitis. 4. The coronary arteries are densely calcified. Consider nonemergent cardiology follow-up. 5. Hepatic steatosis and cholelithiasis. 6. Additional findings as above. ECG Rhythm: sinus with SA Supervising Physician Co-Signing Physician Notes Physical Exam Gen-AAO x 3, NAD, Afebrile, Obese Head-NCAT, EOMI, PERRLA, Anicteric Sclera, No Posterior Pharyngeal Erythema Neck-Supple, No JVD, No Thyromegaly, No Masses, No LAD, No Bruits Lungs-Clear to Auscultation Bilaterally, No Rales, No Rhonchi, No Wheezing, No Crepitus Chest-No S4, +S1, +S2, No S3, No Murmurs, No Rubs, No Gallops, No Ectopy Abdomen-Soft, Bowel Sounds Present, Non Tender, Non Distended, No Hepatomegaly, No Splenomegaly, No Palpable Masses, No Rebound, No Rigidity, No Guarding Musculoskeletal-Full Range of Motion Bilaterally, No CVAT Extremities-No Cyanosis, No Clubbing, No Edema Nuero-Cranial Nerves II-XII grossly intact, Motor WNL, DTRs WNL, Strength WNL, Non Focal Psych-Normal Mood
[2019-10-14 20:01] LABS: Appearance Urine Clear (Clear); Bilirubin Urine Negative (Negative); Blood Urine Negative (Negative); Color Urine Yellow; Glucose Urine UA Negative (Negative); Ketones Urine Negative (Negative); Leukocyte Esterase Urine Negative (Negative); Nitrite Urine Negative (Negative); Protein Urine Negative (Negative); Specific Gravity Urine > 1.045 (1.000-1.030); Urobilinogen Urine Negative (Negative)
[2019-10-14] MEDS ORDERED: LACTASE 3000 UNIT TAB PO PRN (20:03)
[2019-10-14] MEDS ORDERED: NITROGLYCERIN SL 0.4 MG/TAB TAB SL PRN (20:03)
[2019-10-14] MEDS ORDERED: ALBUTEROL HFA 8 GM INHALER INH PRN (20:03)
[2019-10-14] MEDS ORDERED: POLYETHYLENE (MIRALAX) 17 GM PACK PO PRN (20:25)
[2019-10-14] MEDS ORDERED: ACETAMINOPHEN 325 MG TAB PO PRN (20:25)
[2019-10-14] MEDS ORDERED: ONDANSETRON INJ 2 MG/ML 2 ML VIAL IV PRN (20:25)
[2019-10-14] MEDS ORDERED: LORazepam 0.5 MG/1 ML VIAL IV PRN (20:48)
[2019-10-14] MEDS: EZETIMIBE 10 MG TABLET PO SCH (21:27)
[2019-10-14] MEDS: ATORVASTATIN 40 MG TAB PO SCH (21:27)
[2019-10-14] MEDS: HEPARIN SOD 5,000 UNIT/0.5 ML VIAL SQ SCH (21:28)
[2019-10-14] MEDS: DIVALPROEX EXTENDED RELEASE 250 MG TABCR PO SCH (21:28)
[2019-10-14] MEDS: CLOPIDOGREL BISULFATE 75 MG TAB PO SCH (21:28)
[2019-10-14] MEDS: ASPIRIN 81 MG ECTAB PO SCH (21:28)
[2019-10-14] MEDS: PANTOprazole 40 MG TAB PO SCH (21:28)
[2019-10-14] MEDS: LORazepam 0.5 MG TAB PO PRN (21:33)
[2019-10-15 04:54] LABS: Hemoglobin 13.7 g/dL (14.0-18.0); Mean Corpuscular Hemoglobin 31.2 pg (25-34); Mean Corpuscular Hgb Conc 33.4 g/dL (32-36); Mean Corpuscular Volume 93.4 fL (80-100); Mean Platelet Volume 9.8 fL (7.4-10.4); Platelet Count 219 K/uL (130-400); RDW Coefficient of Variation 13.9 % (11.5-14.5); RDW Standard Deviation 47.4 fL (36.4-46.3); Red Blood Count 4.39 M/uL (4.7-6.1); White Blood Count 7.41 K/uL (4.8-10.8)
[2019-10-15 05:21] LABS: Blood Urea Nitrogen 12 mg/dl (7-18); Calcium 8.7 mg/dl (8.5-10.1); Carbon Dioxide 29 mmol/L (21-32); Chloride 106 mmol/L (98-107); Creatinine Clr Calc Pharmacy 190.6 ml/min; Est GFR (African American) 125.7; Est GFR (Non-African American) 108.5; Glucose 97 mg/dl (70-99); Potassium 3.9 mmol/L (3.5-5.1); Sodium 139 mmol/L (136-145)
[2019-10-15] MEDS: HEPARIN SOD 5,000 UNIT/0.5 ML VIAL SQ SCH ×3 (05:25→20:38)
[2019-10-15 05:26] LABS: Troponin I < 0.015 ng/ml (0-0.045)
[2019-10-15] MEDS: LORazepam 0.5 MG TAB PO PRN ×3 (05:36→18:50)
--- NOTE | 2019-10-15 15:50 | Cardiology Consultation ---
Date of Consultation October 15, 2019 Assessment & Plan (1) Exertional dyspnea: (2) Dizziness: (3) Myocardial infarction: (4) CAD (coronary artery disease): (5) Bipolar disorder: (6) Tobacco use disorder: (7) Obesity: (8) S/P coronary artery stent placement: (9) Hyperlipidemia: (10) S/P surgical manipulation of ankle joint: Because of the patient's body habitus and previous ankle injury he will not be able to exercise adequately for good stress test. Because of his large size pharmacologic nuclear stress test would be limited. Patient refuses to undergo dobutamine stress echocardiogram. He does have known coronary artery disease. I think it would be reasonable to proceed directly with a cardiac catheterization to exclude significant coronary artery disease as an etiology of his symptoms. I have explained the risk, benefit and intent of the procedure to him. He has had previous heart catheterizations and would like to proceed. History of Present Illness Attending Physician: Gene Leonard MD History of Present Illness This is a 49-year-old male patient who usually follows with Dr. Cordero. He was last seen in July of this year at which time he was doing well. He has a history of coronary artery disease with prior drug-eluting stent placed in 2011. In January of this year he had an exercise stress echocardiogram that was negative however, his heart rate only reached 75% of maximum. Yesterday he was blowing leaves and helping his neighbor. He did not feel well and had some shortness of breath along with dizziness that brought him to the emergency department. After admission his cardiac markers have been negative. His EKGs showed no acute changes. Past medical history: IMPRESSION: 1. Chronic coronary disease, history of NSTEMI 04/2012 s/p POOJA to Lcx. -clinically stable for many years -recent sub maximal stress test negative for inducible ischemia January 2019 2. Dyslipidemia goal LDL less than 70mg/dL - controlled 3. Morbid obesity - patient commended for recent weight loss 4. E-cigarette use 5. History of bipolar disorder and schizoaffective Allergies Allergy/AdvReac Type Severity Reaction Status Date / Time No Known Allergies Allergy Verified 10/14/19 16:45 Home Medications Home Medications Medication Instructions Recorded Confirmed Type aspirin 81 mg PO HS 11/29/18 10/14/19 History atorvastatin 80 mg PO HS 11/29/18 10/14/19 History clopidogrel [Plavix] 75 mg PO HS 11/29/18 10/14/19 History divalproex [Depakote ER] 250 mg PO HS 11/29/18 10/14/19 History ezetimibe [Zetia] 10 mg PO HS 11/29/18 10/14/19 History nitroglycerin 0.4 mg SUBLINGUAL DIRECTED PRN 11/29/18 10/14/19 History Lactase Enzyme 4,500 unit PO UD PRN 01/02/19 10/14/19 History omeprazole 20 mg PO HS 01/02/19 10/14/19 History albuterol sulfate 2 puff INHALATION QID PRN 10/14/19 10/14/19 History cannabidiol (CBD) extract 0 mg DAILY 10/14/19 10/14/19 History Patient History Medical History Bipolar disorder (Chronic) CAD (coronary artery disease) (Chronic) Colon polyps BENIGN GERD (gastroesophageal reflux disease) Hyperlipidemia (Chronic) Myocardial infarction (Chronic) 2011 Obesity (Chronic) Sleep apnea CPAP DEVICE Tobacco use disorder (Chronic) Surgical History History of ankle surgery right ankle fusion History of cardiac cath 2011-11 stent @ [facility] follows with Dr. Haque History of colonoscopy History of open reduction and internal fixation (ORIF) procedure right ankle S/P coronary artery stent placement (Chronic) "POOJA to left circumflex 2011" Family History Other Lung disease No family history of adverse response to anesthesia Social History Preferred Language: [place]ian Communication Ability: Effective Forensic Dna Analyst Required: No Beliefs That Will Affect Care: None marital status: Current Living Situation: Spouse Current Living Situation Comment: Feels Safe at Home: Yes Safety Concerns: Feels Safe At This Time Smoking Status: Current every day smoker Tobacco Type: e-cigarettes ; Cigarett es Per Day: vapes the equivalent of 1 pack a day ; Second Hand Exposure: No ; Tobacco Cessation Education Requested by Patient: No Hx Alcohol Use: Yes Alcohol type: beer Alcohol Intake Frequency: Rarely Hx Substance Use: No Review of Systems Review of Systems: All systems reviewed & are unremarkable except as noted in HPI & below Nothing additional to add Physical Exam Physical Exam: General: no acute distress and stated age Head: normocephalic, no masses, lesions, tenderness or abnormalities Eyes: conjunctiva are pink and non-injected, sclera clear Neck: supple, no adenopathy, no bruits, normal jugular venous pulse, no hepatojugular reflux Chest: normal shape and normal respiratory effort Lungs: clear to auscultation and percussion Cardiac Exam: - regular rate & rhythm, no murmurs gallops or rubs - normal S1, normal S2 Pulses: 2(+) throughout Abdomen: abdomen soft, non-tender, no abnormal masses and no hepatosplenomegaly Musculoskeletal: no gait disturbance, no joint inflammation, no deforming arthritis Extremities: no edema and no cyanosis Neuro: grossly normal exam Results & Data Vital Signs (Past 12 Hours) Vital Signs Temp Pulse Pulse Resp BP Pulse Ox 10/15/19 15:40 36.7 C 77 22 131/83 93 10/15/19 14:53 89 10/15/19 11:30 36.8 C 91 H 18 118/80 94 10/15/19 08:00 82 10/15/19 07:18 36.8 C 79 18 121/86 96 10/15/19 03:55 36.2 C L 57 L 20 114/75 90 Laboratory Results Laboratory Results - last 24 hr 10/14/19 10/14/19 10/14/19 16:12 16:12 16:12 WBC 9.25 RBC 4.57 L Hgb 13.8 L Hct 41.7 L MCV 91.2 MCH 30.2 MCHC 33.1 RDW Std Deviation 45.9 RDW Coeff of Jamir 13.9 Plt Count 229 MPV 10.0 Immature Gran % (Auto) 0.2 Neut % (Auto) 61.7 Lymph % (Auto) 28.5 [place] % (Auto) 6.7 Eos % (Auto) 2.6 Baso % (Auto) 0.3 Immature Gran # (Auto) 0.02 Neut # (Auto) 5.70 Lymph # (Auto) 2.64 [place] # (Auto) 0.62 H Eos # (Auto) 0.24 Baso # (Auto) 0.03 PT 12.8 H INR 1.3 H APTT 34.4 H PTT Ratio 1.3 Sodium 139 Potassium 3.9 Chloride 107 Carbon Dioxide 29 Anion Gap 3.0 BUN 15 Creatinine 0.82 Est Cr Clr Drug Dosing Not Reportable Est GFR ( Amer) 121.2 Est GFR (Non-Af Amer) 104.6 BUN/Creatinine Ratio 18.3 Glucose 89 Calcium 8.6 Magnesium 2.1 Total Bilirubin 0.4 AST 13 L ALT 30 Alkaline Phosphatase 86 Troponin I < 0.015 NT-Pro-B Natriuret Pep 99 Total Protein 6.6 Albumin 3.5 Globulin 3.1 Albumin/Globulin Ratio 1.1 TSH 1.120 Urine Color Urine Appearance Urine pH Ur Specific [place] Urine Protein Urine Glucose (UA) Urine Ketones Urine Blood Urine Nitrite Urine Bilirubin Urine Urobilinogen Ur Leukocyte Esterase 10/14/19 10/14/19 10/15/19 19:01 22:08 04:18 WBC RBC Hgb Hct MCV MCH MCHC RDW Std Deviation RDW Coeff of Jamir Plt Count MPV Immature Gran % (Auto) Neut % (Auto) Lymph % (Auto) [place] % (Auto) Eos % (Auto) Baso % (Auto) Immature Gran # (Auto) Neut # (Auto) Lymph # (Auto) [place] # (Auto) Eos # (Auto) Baso # (Auto) PT INR APTT PTT Ratio Sodium 139 Potassium 3.9 Chloride 106 Carbon Dioxide 29 Anion Gap 4.0 BUN 12 Creatinine 0.75 Est Cr Clr Drug Dosing 190.6 Est GFR ( Amer) 125.7 Est GFR (Non-Af Amer) 108.5 BUN/Creatinine Ratio 16.0 Glucose 97 Calcium 8.7 Magnesium Total Bilirubin AST ALT Alkaline Phosphatase Troponin I < 0.015 < 0.015 NT-Pro-B Natriuret Pep Total Protein Albumin Globulin Albumin/Globulin Ratio TSH Urine Color Yellow Urine Appearance Clear Urine pH 5.0 Ur Specific [place] > 1.045 H Urine Protein Negative Urine Glucose (UA) Negative Urine Ketones Negative Urine Blood Negative Urine Nitrite Negative Urine Bilirubin Negative Urine Urobilinogen Negative Ur Leukocyte Esterase Negative 10/15/19 04:18 WBC 7.41 RBC 4.39 L Hgb 13.7 L Hct 41.0 L MCV 93.4 MCH 31.2 MCHC 33.4 RDW Std Deviation 47.4 H RDW Coeff of Jamir 13.9 Plt Count 219 MPV 9.8 Immature Gran % (Auto) Neut % (Auto) Lymph % (Auto) [place] % (Auto) Eos % (Auto) Baso % (Auto) Immature Gran # (Auto) Neut # (Auto) Lymph # (Auto) [place] # (Auto) Eos # (Auto) Baso # (Auto) PT INR APTT PTT Ratio Sodium Potassium Chloride Carbon Dioxide Anion Gap BUN Creatinine Est Cr Clr Drug Dosing Est GFR ( Amer) Est GFR (Non-Af Amer) BUN/Creatinine Ratio Glucose Calcium Magnesium Total Bilirubin AST ALT Alkaline Phosphatase Troponin I NT-Pro-B Natriuret Pep Total Protein Albumin Globulin Albumin/Globulin Ratio TSH Urine Color Urine Appearance Urine pH Ur Specific [place] Urine Protein Urine Glucose (UA) Urine Ketones Urine Blood Urine Nitrite Urine Bilirubin Urine Urobilinogen Ur Leukocyte Esterase Medications Administered Current Inpatient Medications Acetaminophen (Tylenol) 650 mg PO Q4H PRN PRN Reason: Pain or Fever Stop: 11/13/19 20:24 Albuterol (Ventolin Hfa) 2 puffs INH QID PRN PRN Reason: bronchitis Stop: 11/13/19 20:02 Aspirin (Ecotrin Ectab) 81 mg PO HS [facility] Stop: 11/13/19 20:59 Last Admin: 10/14/19 21:28 Dose: 81 mg Documented by: Atorvastatin Calcium (Lipitor) 80 mg PO HS [facility] Stop: 11/13/19 20:59 Last Admin: 10/14/19 21:27 Dose: 80 mg Documented by: Clopidogrel Bisulfate (Plavix) 75 mg PO HS [facility] Stop: 11/13/19 20:59 Last Admin: 10/14/19 21:28 Dose: 75 mg Documented by: Divalproex Sodium (Depakote Extended Release) 250 mg PO HS [facility] Stop: 11/13/19 20:59 Last Admin: 10/14/19 21:28 Dose: 250 mg Documented by: Ezetimibe (Zetia) 10 mg PO HS [facility] Stop: 11/13/19 20:59 Last Admin: 10/14/19 21:27 Dose: 10 mg Documented by: Heparin Sodium (Porcine) (Heparin Sodium (Porcine)) 5,000 units SQ Q8 [facility] Stop: 11/13/19 21:59 Last Admin: 10/15/19 13:03 Dose: 5,000 units Documented by: Sodium Chloride (Nss 1000ml) 1,000 mls @ 1 mls/hr IV .Q24H [facility] Stop: 11/14/19 16:14 Lactase (Lactaid) 4,500 units PO UD PRN PRN Reason: Lactose Intolerance Lorazepam (Ativan) 0.5 mg PO Q6H PRN PRN Reason: Anxiety/Agitation Stop: 11/13/19 21:00 Last Admin: 10/15/19 13:02 Dose: 0.5 mg Documented by: Nitroglycerin (Nitrostat) 0.4 mg SL UD PRN PRN Reason: Chest Pain Stop: 11/13/19 20:02 Ondansetron HCl (Zofran) 4 mg IV Q6H PRN PRN Reason: Nausea Stop: 11/13/19 20:24 Pantoprazole Sodium (Protonix) 40 mg PO HS [facility] Stop: 11/13/19 20:59 Last Admin: 10/14/19 21:28 Dose: 40 mg Documented by: Polyethylene Glycol (Miralax Powder Packet) 17 gm PO DAILY PRN PRN Reason: Constipation Stop: 11/13/19 20:24
[2019-10-15] MEDS: DIVALPROEX EXTENDED RELEASE 250 MG TABCR PO SCH (20:37)
[2019-10-15] MEDS: EZETIMIBE 10 MG TABLET PO SCH (20:37)
[2019-10-15] MEDS: ATORVASTATIN 40 MG TAB PO SCH (20:38)
[2019-10-15] MEDS: PANTOprazole 40 MG TAB PO SCH (20:38)
[2019-10-15] MEDS: CLOPIDOGREL BISULFATE 75 MG TAB PO SCH (20:38)
[2019-10-15] MEDS: ASPIRIN 81 MG ECTAB PO SCH (20:39)
--- NOTE | 2019-10-15 20:49 | Hospitalist Progress Note ---
Date of Service October 15, 2019 Assessment & Plan (1) Exertional dyspnea: Experiencing worsening dyspnea on exertion. Known CAD with non-STEMI and POOJA to circ in 2011. Acute AK ruled out. No acute EKG changes. CTA chest negative for PE, but shows extensive coronary calcifications. Consider noncardiac etiology- e.g., bronchitis, obesity, deconditioning, obstructive airway disease. (2) CAD (coronary artery disease): As noted above. Acute AK ruled out. Consider unstable angina. Continue aspirin, clopidogrel, lipid management. Consult Cardiology. (3) Hyperlipidemia: Check lipid profile. Continue atorvastatin and ezetimibe. (4) DVT prophylaxis: SQ heparin. (5) Discharge planning issues: Anticipated discharge to home. Family Medicine follow-up with Dr. Ana Lou. Subjective Recheck for chest pressure and dyspnea on exertion. Patient seen in their room around 1450. Admitted yesterday with CP and SWEET after doing some yard work. History of non-STEMI with POOJA to circ in 2011. Still experiencing dyspnea on minimal exertion today. Occasional cough. No fever. Has some back / shoulder discomfort. Review of Systems: Constitutional- no fever. Cardiac- as noted above. Pulmonary- as noted above. GI- no nausea, vomiting, diarrhea, melena, hematochezia. - no urinary symptoms. Otherwise, as noted above. Physical Exam Constitutional: no acute distress Respiratory: no respiratory distress Auscultation: lungs clear to auscultation bilaterally Cardiovascular: Rate/Rhythm: regular rate and regular rhythm Heart Sounds: no gallop, no murmur and no cardiac rub Vessels: no JVD Extremities: no calf tenderness and no edema Gastrointestinal (Abdomen): normal bowel sounds, soft, nontender, no h epatosplenomegaly Skin: no rashes, warm and dry Psychiatric: Orientation: alert and oriented x 3 Results & Data Vital Signs (Past 12 Hours) Vital Signs Temp Pulse Pulse Resp BP Pulse Ox 10/15/19 19:13 36.9 C 83 18 114/79 95 10/15/19 15:40 36.7 C 77 22 131/83 93 10/15/19 14:53 89 10/15/19 11:30 36.8 C 91 H 18 118/80 94 ECG Additional Comments: EKG performed at 0637 reviewed and demonstrated NSR at 83 / min, poor R-wave progression, no acute changes.
[2019-10-15] MEDS: SODIUM CHLORIDE 0.9% 1000ML 1,000 ML IV SCH (23:28)
[2019-10-16] MEDS: HEPARIN SOD 5,000 UNIT/0.5 ML VIAL SQ SCH ×2 (05:00→17:36)
[2019-10-16] MEDS: LORazepam 0.5 MG TAB PO PRN (05:05)
[2019-10-16] MEDS: SODIUM CHLORIDE 0.9% 1000ML 1,000 ML IV SCH (06:35)
[2019-10-16 09:00] LABS: Chol HDL Ratio 3; Cholesterol 91 mg/dl (0-200); HDL Cholesterol 37 mg/dl; LDL Cholesterol Calculated 33 mg/dl; Triglycerides 107 mg/dl (0-150); VLDL Cholesterol 21 mg/dl
[2019-10-16] MEDS ORDERED: HEPARIN (PORCINE) 1000 UNIT/ML 10 ML (CATH LAB USE ONLY) ONE (11:36)
[2019-10-16] MEDS ORDERED: NITROGLYCERIN/D5W 100MCG/ML 20ML SYR ONE (11:36)
[2019-10-16] MEDS ORDERED: fentaNYL citrate 100 MCG/2 ML VIAL ONE (11:36)
[2019-10-16] MEDS ORDERED: NiCARDipine HCL INJ 2.5 MG/ML 10 ML AMP ONE (11:36)
[2019-10-16] MEDS ORDERED: MIDAZOLAM HCL 1 MG/ML 2ML VIAL ONE (11:36)
--- NOTE | 2019-10-16 12:29 | Cardiac Catheterization ---
Date of Service October 16, 2019 Cardiac Cath Report Cardiac Cath Report Procedure: 1. Coronary angiography History: This is a 49-year-old male patient with a history of coronary artery disease and previous stent placement in the left circumflex artery in 2011. He presented with symptoms of shortness of breath and dyspnea. Procedure summary: After informed consent was obtained the patient was taken to the cardiac catheterization lab where he was prepped and draped in the usual manner. A right transradial approach was performed using a retrograde cylinder technique. 5 [place]ic diagnostic catheters were utilized for the coronary angiograms. Following the procedure the patient was returned to his room in stable condition. ACC data: Start time 12:04 PM End time 12:23 PM Opening aortic pressure 110/83 LV pressurevalve not crossed Closing aortic pressure 123/93 Sedation 2 mg intravenous Versed IV fluid 46 cc normal saline Contrast 75 cc Optiray Fluoroscopy time 5.6 minutes Radiation 2008 mGy DAP 138.38 mGy/m. Right dominant system AUC 7 Coronary angiography: Selective injections of the left coronary artery revealed the left main trunk to be widely patent. The LAD extends to the apex of the heart. The LAD gives off a large first diagonal and a medium to large second diagonal branch. The LAD system is widely patent. The left circumflex artery consists of a small to medium sized distal marginal branch. There is a small ramus branch from the left circumflex artery proximally. There is evidence in the midportion of the artery of a previous stent. The left circumflex artery including the previous stent site is widely patent. Selective injections of the right coronary artery reveal it to be hyperdominant and very large. The right coronary artery is widely patent. Summary: The coronary anatomy is widely patent including the previous stent site in the left circumflex artery. Recommendations: The recommendations are for continued medical management of the patient's coronary artery disease.
[2019-10-16] MEDS ORDERED: SODIUM CHLORIDE 0.9% 1000ML 1,000 ML IV SCH (12:45)
--- NOTE | 2019-10-16 15:29 | Hospitalist Progress Note ---
Date of Service October 16, 2019 Assessment & Plan (1) Exertional dyspnea: Experiencing worsening dyspnea on exertion. Known CAD with non-STEMI and POOJA to circ in 2011. Acute IA ruled out. No acute EKG changes. CTA chest negative for PE, but shows extensive coronary calcifications. Cardiac cath showed patent coronaries including circumflex stent. Consider noncardiac etiology- e.g., bronchitis, obesity, deconditioning, obstructive airway disease. Weight loss and avoidance of smoking / vaping encouraged. (2) CAD (coronary artery disease): As noted above. Acute IA ruled out. Cardiac cath showed patent coronaries including circumflex stent. Continue aspirin, clopidogrel, lipid management. (3) Hyperlipidemia: LDL-c = 33. Continue atorvastatin and ezetimibe. (4) Morbid obesity: Weight 164 kg. BMI 50. Morbid obesity, probably contributing to dyspnea and fatigue. Weight loss encouraged. Ongoing counseling / support. (5) DVT prophylaxis: SQ heparin. (6) Discharge planning issues: Anticipated discharge to home. Family Medicine follow-up with Dr. Ana Lou. Subjective Recheck for chest pressure and dyspnea on exertion. Patient seen in their room around 1500. Cath performed earlier today and went well. Coronaries and circumflex stent were patent. Physical Exam Constitutional: no acute distress Respiratory: no respiratory distress Auscultation: lungs clear to auscultation bilaterally Cardiovascular: Rate/Rhythm: regular rate and regular rhythm Heart Sounds: no gallop, no murmur and no cardiac rub Vessels: no JVD Extremities: no calf tenderness and no edema Gastrointestinal (Abdomen): normal bowel sounds, soft, nontender, no hepatos plenomegaly Musculoskeletal: compression band right wrist; fingers warm with good capillary refill Skin: no rashes, warm and dry Psychiatric: Orientation: alert and oriented x 3 Results & Data Vital Signs (Past 12 Hours) Vital Signs Temp Pulse Pulse Resp BP BP Pulse Ox 10/16/19 14:20 36.6 C 64 20 152/96 H 95 10/16/19 14:00 36.8 C 57 L 20 158/91 H 95 10/16/19 13:03 36.8 C 57 L 18 158/91 H 95 10/16/19 12:50 71 20 135/83 94 10/16/19 12:40 65 20 109/88 97 10/16/19 12:35 71 20 129/80 97 10/16/19 10:53 36.6 C 71 20 141/83 H 97 10/16/19 08:00 55 L 10/16/19 07:56 36.7 C 72 22 119/77 93 10/16/19 03:30 36.4 C L 71 115/77 92
--- NOTE | 2019-10-18 17:26 | Discharge Summary ---
Date of Service Date of Admission: 10/14/19 Date of Discharge: 10/16/19 Admission HPI Per Admitting Provider This is a 49yo M with a PMH of CAD (s/p POOJA to LCx in 2011), bipolar disorder, PALOMO on CPAP, daily marijuana use and other medical problems listed below who presents after developing shortness of breath and dizziness this afternoon. Patient was raking his leaves when he became dyspneic and dizzy. Even after stopping his unable to catch his breath so I found to the ED for further evaluation. Patient recently had bronchitis so states that his breathing is not back to baseline. Also has history of AK in 2012 that presented with shortness of breath and right shoulder pain, so was concerned about another cardiac event. Since arrival to ED, symptoms have resolved with the exception of some residual lightheadedness. Denies any fever, chills, visual changes, cough, chest pain, palpitations, shortness of breath, wheezing, nausea, vomiting, abdominal pain, dysuria, diarrhea or constipation. Principal Diagnosis dyspnea on exertion- acute AK and PE ruled out Discharge Data Allergies Allergy/AdvReac Type Severity Reaction Status Date / Time No Known Allergies Allergy Verified 10/14/19 16:45 Consultations 10/14/19 18:32 ED Decision to Admit Stat 10/15/19 15:04 Consult Cardiology Routine Procedures Performed Operation Date: 10/16/19 10:00 Actual Procedures p Cineradiography w/Routine Exam - Hang Meza DO p Cath, Coronaries ONLY (no LV) - Hang Meza DO Ordered Studies 10/14/19 15:53 CT angio chest PE protocol Stat CT head/brain wo con Stat 10/16/19 06:32 CL Cath Imgs for PACS use only Routine Hospital Course (1) Exertional dyspnea: Experiencing worsening dyspnea on exertion. Known CAD with non-STEMI and POOJA to circ in 2011. Acute AK ruled out. No acute EKG changes. CTA chest negative for PE, but shows extensive coronary calcifications. Cardiac cath showed patent coronaries including circumflex stent. Consider noncardiac etiology- e.g., bronchitis, obesity, deconditioning, obstructive airway disease. Weight loss and avoidance of smoking / vaping encouraged. (2) CAD (coronary artery disease): As noted above. Acute AK ruled out. Cardiac cath showed patent coronaries including circumflex stent. Continue aspirin, clopidogrel, lipid management. (3) Hyperlipidemia: LDL-c = 33. Continue atorvastatin and ezetimibe. (4) Morbid obesity: Weight 164 kg. BMI 50. Morbid obesity, probably contributing to dyspnea and fatigue. Weight loss encouraged. Ongoing counseling / support. (5) DVT prophylaxis: SQ heparin. (6) Discharge planning issues: Anticipated discharge to home. Family Medicine follow-up with Dr. Ana Lou. Total Time Total Time Spent Total Time Spent (In Minutes): 30 Discharge Plan Discharge Items Patient Disposition: Home - Self-Care Reason For Visit: shortness of breath Discharge Diagnosis: shortness of breath no sign of heart attack no significant blockage in coronary arteries no blood clots in lungs (pulmonary emboli) no sign of pneumonia Condition on Discharge: Good Activity: Resume your previous activity Non-emergency contact: Primary Care Provider and Hospitalist Call non-emergency contact if: you have any medication questions, your symptoms worsen and your temperature is above 101 Follow-up/Referrals: Ana Lou DO [Primary Care Provider] - (10/22/2019 10:30 AM Ana Lou DO ) Diet: Heart Healthy Addtl Attending Provider Instructions: MEDICATION CHANGES: none SUMMARY OF TEST RESULTS: CT CHEST no blood clots no pneumonia coronary arteries showed calcium deposits No sign of damage to the heart. Cholesterol profile: total cholesterol 91 HDL cholesterol 37 LDL cholesterol 33 triglycerides 107 OTHER INSTRUCTIONS: Obesity is probably contributing to your fatigue and trouble breathing. Do your best to lose weight. Let Dr. Lou know if you would like to see a microfilm operator. Please do not smoke or vape. Seek medical attention if you have: * temperature above 101 * chest pain or trouble breathing * abdominal pain, nausea, vomiting * diarrhea, dark stools or bloody stools * any unanswered questions or concerns Call 911 if symptoms are severe. Please take good care of yourself. Call if you have any questions or problems. You can reach a [facility] hospitalist on duty at [facility] 24 hours a day by calling [phone]. My cell # is [phone]. Pending Studies at Discharge: No Stand-Alone Forms: My [facility], Smoking Cessation Medications and DC Order Prescriptions: Continued atorvastatin 80 mg tablet 80 mg PO HS RF: 0 clopidogrel [Plavix] 75 mg tablet 75 mg PO HS RF: 0 aspirin 81 mg Tablet,Delayed Release (Dr/Ec) 81 mg PO HS RF: 0 nitroglycerin 0.4 mg tablet, sublingual 0.4 mg Sublingual DIRECTED PRN (Reason: Chest Pain) RF: 0 ezetimibe [Zetia] 10 mg tablet 10 mg PO HS RF: 0 divalproex [Depakote ER] 250 mg tablet extended release 24 hr 250 mg PO HS RF: 0 Lactase Enzyme 4,500 unit Tablet 4,500 unit PO UD PRN (Reason: Lactose Intolerance) RF: 0 omeprazole 20 mg Tablet,Delayed Release (Dr/Ec) 20 mg PO HS RF: 0 albuterol sulfate 90 mcg/actuation HFA aerosol inhaler 2 puff INHALATION QID PRN (Reason: bronchitis) RF: 0 cannabidiol (CBD) extract 100 mg/mL Solution 0 mg DAILY RF: 0 Discharge Orders: Discharge Order (Routine); Ordered 10/16/19 Ordered By: Gene Leonard Admission Data Admit Date/Time: 10/14/19 19:21 Attending Provider: Gene Leonard Admit Provider: Ilia Warren Primary Care Provider: Ana Lou Other Providers: Ilia Warren ; Hang Meza ; Terri Loredo. Other Interventions: Discharge Summary Assessment (RN) Last Done: 10/16/19 18:23 DC Date/Time DO NOT enter until pt leaves facility: 10/16/19 18:54
== END 2019-10-16 18:54 | disposition home or self-care (01) ==
LOC: 2S 15:17 → ED 15:17 → SUATTDRO 19:21 → 2S 19:59
PROC: CLB.CCO (2019-10-16 10:00)